=== PATIENT | male | born 1940 | race Caucasian/White ===

== ENCOUNTER → 2017-12-07 | Outpatient (CLI) | payer OTHER, MEDICARE ==
[2017-12-07 17:55] LABS: BASO % 0.2 %; BASO ABS # 0.01 K/uL (0-0.2); EOS % 4.6 %; EOS ABS # 0.27 K/uL (0-0.5); HEMATOCRIT 41.2 % (42-52); IG# 0.05 K/uL (0.00-0.02); LYMPH % 21.6 %; LYMPH ABS # 1.27 K/uL (1.2-3.4); MEAN CELL VOLUME 92.2 fL (80-100); MEAN CORPUSCULAR HEMOGLOBIN 31.3 pg (25-34); MEAN PLATELET VOLUME 10.1 fL (7.4-10.4); MONO % 11.9 %; NEUT % 60.8 %; NEUT ABS # 3.57 K/uL (1.4-6.5); PLATELET COUNT 243 K/uL (130-400); RED CELL DISTRIBUTION WIDTH CV 13.3 % (11.5-14.5); RED CELL DISTRIBUTION WIDTH SD 44.6 fL (36.4-46.3); WHITE BLOOD COUNT 5.87 K/uL (4.8-10.8)
[2017-12-07 18:57] LABS: ALBUMIN 3.7 gm/dl (3.4-5.0); ALT/SGPT 31 U/L (12-78); BLOOD UREA NITROGEN 15 mg/dl (7-18); CALCIUM 8.3 mg/dl (8.5-10.1); CARBON DIOXIDE 29 mmol/L (21-32); CHOLESTEROL 130 mg/dl (0-200); CREATININE 0.94 mg/dl (0.60-1.40); GLUCOSE 90 mg/dl (70-99); SODIUM 138 mmol/L (136-145)
[2017-12-07 19:08] LABS: ALKALINE PHOSPHATASE 47 U/L (45-117); AST/SGOT 20 U/L (15-37); LDL CHOLESTEROL CALCULATED 82 mg/dl; TOTAL PROTEIN 7.3 gm/dl (6.4-8.2)
== END | disposition home or self-care (01) ==
LOC: C.LABMFLN 14:58
PROVIDERS: ATTEND Physician Assistant
DX: Z00.00 Encounter for general adult medical examination without abnormal findings (principal); Z13.220 Encounter for screening for lipoid disorders; Z13.1 Encounter for screening for diabetes mellitus; Z86.73 Personal history of transient ischemic attack (TIA), and cerebral infarction without residual deficits; Z13.29 Encounter for screening for other suspected endocrine disorder

== ENCOUNTER 2021-11-05 20:01 | Inpatient (IN) ==
[2021-11-05] MEDS ORDERED: ONDANSETRON INJ 2 MG/ML 2 ML VIAL IV STA (20:15)
[2021-11-05] MEDS ORDERED: LABETALOL HCL IV 5 MG/ML 20ML IV STA (20:15)
[2021-11-05] MEDS ORDERED: OPTIRAY 320 125ml IV ONE (20:28)
[2021-11-05] MEDS: SODIUM CHLORIDE 0.9% 1000ML 1,000 ML IV SCH (20:32)
--- NOTE | 2021-11-05 20:35 | Emergency Department Note ---
History of Present Illness General Chief complaint: Neuro Symptoms/Deficit Stated complaint: POSSIBLE STROKE Time Seen by Provider: 11/05/21 20:09 Source: patient and family Mode of arrival: ambulatory Limitations: no limitations History of Present Illness Provider complaint: Possible stroke Maximum Pain Intensity: 7 Treatments prior to arrival: none This is a 81-year-old male presents with at bedside due to concern for possible stroke. Patient states he was driving at 3:30 PM when he suddenly developed headache, left-sided facial numbness, left arm and left leg numbness. Patient denies overt weakness. States upon attempts at standing then he became dizzy, nauseated, began to vomit. Patient states he called his who had to come get him and then brought him to the emergency room. She states that every time he stands up he feels more nauseated and dizzy and vomits. No prior history of stroke. Patient states he does not routinely go to the doctor. He does not routinely use any antiplatelet or anticoagulation therapy. No known history of hypertension, hyperlipidemia, or diabetes. states every once in a while he will take a low-dose aspirin, she does not know when he last took 1. Patient denies any accompanying chest pain, trouble breathing, or abdominal pain. He states he did notice blurry vision when this all began at 330. Stroke alert activated while I was evaluating the patient in room B1. Pt seen during a time of high acuity and national emergency pandemic while wearing PPE. Home Medications Medication Instructions Recorded Confirmed Type aspirin 81 mg tablet,delayed 81 mg PO [id number] 11/05/21 11/05/21 History release Allergies Allergy/AdvReac Type Severity Reaction Status Date / Time No Known Allergies Allergy Unverified 11/05/21 22:04 Past Med/Surg History Medical History (Updated 11/06/21 @ 01:55 by Lizett Horton DO) Blood pressure elevated without history of HTN History of TIA (transient ischemic attack) No significant past medical history Surgical History History of tonsillectomy Hx of appendectomy Family History Unknown Adopted Social History Smoking Status: Former smoker Preferred Language: Palestinian marital status: Current Living Situation: Spouse current occupational status: retired Feels Safe at Home: Yes Review of Systems A total of 10 systems reviewed and were otherwise negative All systems reviewed & are unremarkable except as noted in HPI & below Physical Exam Vital Signs Vital Signs - 24 hr 11/05/21 20:02 11/05/21 20:55 11/05/21 20:58 Temperature 36.3 C L Temperature Source Oral Pulse Rate 68 Pulse Rate [Apical] 74 Pulse Rhythm [Apical] Regular Pulse Strength [Apical] Normal Respiratory Rate 20 16 Respiratory Effort / Characteristics Non-Labored Spontaneous Respiratory Depth Normal Respiratory Pattern Regular Blood Pressure 193/114 H Blood Pressure [Left Arm] 174/91 H Blood Pressure Mean 140 Blood Pressure Mean [Left Arm] 118 Blood Pressure Position [Left Arm] Sitting Pulse Oximetry 98 94 95 Oxygen Delivery Method Room Air Room Air Room Air Sepsis New/Unexplained Change in Mental Status N/A Sepsis Action Taken by Nursing No Action Required Pulse Oximetry Post Tiitration 94 11/05/21 22:08 Temperature Temperature Source Pulse Rate Pulse Rate [Apical] 69 Pulse Rhythm [Apical] Regular Pulse Strength [Apical] Respiratory Rate 19 Respiratory Effort / Characteristics Non-Labored Respiratory Depth Normal Respiratory Pattern Regular Blood Pressure Blood Pressure [Left Arm] 173/104 H Blood Pressure Mean Blood Pressure Mean [Left Arm] 127 Blood Pressure Position [Left Arm] Pulse Oximetry 97 Oxygen Delivery Method Room Air Sepsis New/Unexplained Change in Mental Status Sepsis Action Taken by Nursing Pulse Oximetry Post Tiitration GENERAL: alert, ill appearing, well nourished, mild distress, non-toxic, holding emesis bag, vomited twice in room B1 EYE EXAM: normal conjunctiva, PERRL and EOM's grossly intact OROPHARYNX: no exudate, no erythema, lips, buccal mucosa, and tongue normal and mucous membranes are moist NECK: supple, no nuchal rigidity, no adenopathy, non-tender LUNGS: Clear to auscultation. Normal chest wall mechanics, no w/r/r HEART: no murmurs, S1 normal and S2 normal ABDOMEN: abdomen soft, non-tender, normo-active bowel sounds, no masses, no rebound or guarding. BACK: Back is symmetrical on inspection and there is no deformity, no midline tenderness, no CVA tenderness. SKIN: no rashes and no bruising UPPER EXTREMITIES: upper extremities are grossly normal. FROM, nml pulses b/l. Patient describes subjective sensory difference to the left upper extremity compared to the right. LOWER EXTREMITIES: No pitting edema. FROM, nml pulses b/l. Left lower extremity weakness. Patient's describes subjective sensory difference to left lower extremity compared to the right. NEURO EXAM: Normal sensorium, cranial nerves II-XII grossly intact, normal speech, no obvious facial droop however slight flattening of the right nasolabial fold - at bedside feels his face looks symmetric and normal to her, patient states left side of face has subjective altered sensation compared to right, no gross weakness of arms, no limb ataxia, left lower extremity with appreciable weakness as it slowly drops to the bed. Gross sensation intact. NIHSS 4 Course Course 2041: No change in symptoms. Blood pressure is slightly improved. 2051: Discussed with Dr. Jaime, [place] [facility]. She will evaluate. 2124: [place] [facility] requested my presence at bedside. They discussed they do agree patient is having a stroke although he at this time he is outside the window for TPA, and there is no obvious occlusion on CT/CTA to warrant other procedural intervention at this time. They do recommend additional inpatient evaluation with MRI, echo, initiation of aspirin and Plavix therapy, hemoglobin A1c, lipid panel, and initiation of a statin. Administered Medications Sodium Chloride (Nss 1000ml) 1,000 mls @ 125 mls/hr IV .Q8H CLAY Stop: 12/05/21 20:14 Last Admin: 11/05/21 20:32 Dose: 125 mls/hr Documented by: [id number] Discontinued Medications Aspirin (Aspirin Chew 324 Mg) 324 mg PO NOW STA Stop: 11/05/21 21:34 Last Admin: 11/05/21 21:53 Dose: 324 mg Documented by: [id number] Clopidogrel Bisulfate (Clopidogrel Bisulfate 300 Mg Tab) 300 mg PO NOW STA Stop: 11/05/21 21:34 Last Admin: 11/05/21 21:53 Dose: 300 mg Documented by: [id number] Ioversol (Optiray 320 125ml) 125 ml IV ONCE ONE Stop: 11/05/21 20:29 Last Admin: 11/05/21 20:28 Dose: 125 ml Documented by: [id number] Labetalol HCl (Labetalol Hcl Iv 5 Mg/Ml 20ml) 5 mg IV NOW STA Stop: 11/05/21 20:16 Last Admin: 11/05/21 20:32 Dose: 5 mg Documented by: [id number] Cosigned by: [id number] Ondansetron HCl (Ondansetron Inj 2 Mg/Ml 2 Ml Vial) 4 mg IV NOW STA Stop: 11/05/21 20:16 Last Admin: 11/05/21 20:31 Dose: 4 mg Documented by: [id number] Rosuvastatin Calcium (Rosuvastatin Calcium 20 Mg Tab) 20 mg PO NOW STA Stop: 11/05/21 21:35 Last Admin: 11/05/21 21:53 Dose: 20 mg Documented by: [id number] Critical Care Time Critical Care Time: Yes Total Critical Care Time: 39 Critical care of 39 min performed to assess and manage high likelihood of life- threatening CVA and hypertension, involving labs and imaging performed with assessment to evaluate CVA diagnosis with frequent reassessment. This time includes bedside time, treatment discussions with patient/family/consultants, documentation time and excludes procedure time. Medical Decision Making Differential Diagnosis Differential Diagnosis includes but is not limited to ischemic Stroke, hemorrhagic stroke, bells palsy, mass, neoplasm, migraine headache, seizure, subarachnoid hemorrhage, TIA, and transient global amnesia. Medical Records Attestation: I reviewed the patient's medical records. Home Medications Current Medication List: was personally reviewed by me Laboratory Data Attestation: I reviewed the patient's lab results. Result diagrams: 11/05/21 20:31 11/05/21 20:31 Lab Results 11/05/21 11/05/21 11/05/21 Range/Units 20:15 20:31 20:31 WBC 11.67 H (4.8-10.8) K/uL RBC 4.04 L (4.7-6.1) M/uL Hgb 12.5 L (14.0-18.0) g/dL POC Hgb (14.0-18.0) g/dl Hct 37.6 L (42-52) % POC Hct (42-52) % MCV 93.1 (80-100) fL MCH 30.9 (25-34) pg MCHC 33.2 (32-36) g/dL RDW Std Deviation 44.9 (36.4-46.3) fL RDW Coeff of Maritza 13.1 (11.5-14.5) % Plt Count 276 (130-400) K/uL MPV 10.0 (7.4-10.4) fL Immature Gran % (Auto) 0.3 % Neut % (Auto) 88.6 % Lymph % (Auto) 7.5 % [place] % (Auto) 2.9 % Eos % (Auto) 0.5 % Baso % (Auto) 0.2 % Neut # (Auto) 10.34 H (1.4-6.5) K/uL Lymph # (Auto) 0.88 L (1.2-3.4) K/uL [place] # (Auto) 0.34 (0.11-0.59) K/uL Eos # (Auto) 0.06 (0-0.5) K/uL Baso # (Auto) 0.02 (0-0.2) K/uL Immature Gran # (Auto) 0.03 H (0.00-0.02) K/uL PT 11.4 (9.0-12.0) Seconds INR 1.1 (0.9-1.1) APTT 25.4 (21.0-31.0) Seconds PTT Ratio 1.0 POC Sodium (135-144) mmol/L Sodium (136-145) mmol/L POC Potassium (3.3-5.0) mmol/L Potassium (3.5-5.1) mmol/L POC Chloride (101-112) mmol/L Chloride (98-107) mmol/L Carbon Dioxide (21-32) mmol/L POC Total CO2 (24-31) mmol/L Anion Gap (3-11) POC Anion Gap (16-25) mmol/L POC BUN (7-18) mg/dl BUN (6-23) mg/dl Creatinine (0.6-1.4) mg/dl POC Creatinine (0.6-1.3) mg/dl Est Cr Clr Drug Dosing ml/min Est GFR ( Amer) ml/min Est GFR (Non-Af Amer) ml/min BUN/Creatinine Ratio (10-20) Glucose (70-99(Fasting)) mg/dl POC Glucose 113 H (70-99) mg/dl POC Glucose (other) (70-99) mg/dl Calcium (8.5-10.1) mg/dl POC Ioniz Calcium Marcelino (1.12-1.32) mmol/l Magnesium (1.7-2.4) mg/dl Total Bilirubin (0.2-1.0) mg/dl AST (13-39) U/L ALT (7-52) U/L Alkaline Phosphatase (34-104) U/L Troponin I (0-0.04) ng/ml Total Protein (6.0-8.3) gm/dl Albumin (3.4-5.0) gm/dl Globulin (2.5-4.0) gm/dl Albumin/Globulin Ratio (0.9-2) Triglycerides (0-150) mg/dl Cholesterol (0-200) mg/dl LDL Cholesterol, Calc mg/dl VLDL Cholesterol, Calc (0-30) mg/dl HDL Cholesterol mg/dl Cholesterol/HDL Ratio (0-5) SARS-CoV-2, RNA, NAAT (NEGATIVE) 11/05/21 11/05/21 11/05/21 Range/Units 20:31 20:31 20:37 WBC (4.8-10.8) K/uL RBC (4.7-6.1) M/uL Hgb (14.0-18.0) g/dL POC Hgb 12.2 L (14.0-18.0) g/dl Hct (42-52) % POC Hct 36 L (42-52) % MCV (80-100) fL MCH (25-34) pg MCHC (32-36) g/dL RDW Std Deviation (36.4-46.3) fL RDW Coeff of Maritza (11.5-14.5) % Plt Count (130-400) K/uL MPV (7.4-10.4) fL Immature Gran % (Auto) % Neut % (Auto) % Lymph % (Auto) % [place] % (Auto) % Eos % (Auto) % Baso % (Auto) % Neut # (Auto) (1.4-6.5) K/uL Lymph # (Auto) (1.2-3.4) K/uL [place] # (Auto) (0.11-0.59) K/uL Eos # (Auto) (0-0.5) K/uL Baso # (Auto) (0-0.2) K/uL Immature Gran # (Auto) (0.00-0.02) K/uL PT (9.0-12.0) Seconds INR (0.9-1.1) APTT (21.0-31.0) Seconds PTT Ratio POC Sodium 135 (135-144) mmol/L Sodium 131 L (136-145) mmol/L POC Potassium 4.1 (3.3-5.0) mmol/L Potassium 4.0 (3.5-5.1) mmol/L POC Chloride 100 L (101-112) mmol/L Chloride 101 (98-107) mmol/L Carbon Dioxide 25 (21-32) mmol/L POC Total CO2 23 L (24-31) mmol/L Anion Gap 5 (3-11) POC Anion Gap 17.0 (16-25) mmol/L POC BUN 22 H (7-18) mg/dl BUN 22 (6-23) mg/dl Creatinine 0.78 (0.6-1.4) mg/dl POC Creatinine 0.8 (0.6-1.3) mg/dl Est Cr Clr Drug Dosing 94.4 ml/min Est GFR ( Amer) 99.5 ml/min Est GFR (Non-Af Amer) 85.9 ml/min BUN/Creatinine Ratio 28.2 H (10-20) Glucose 128 H (70-99(Fasting)) mg/dl POC Glucose (70-99) mg/dl POC Glucose (other) 130 H (70-99) mg/dl Calcium 8.1 L (8.5-10.1) mg/dl POC Ioniz Calcium Marcelino 1.13 (1.12-1.32) mmol/l Magnesium 2.1 (1.7-2.4) mg/dl Total Bilirubin 1.0 (0.2-1.0) mg/dl AST 13 (13-39) U/L ALT 11 (7-52) U/L Alkaline Phosphatase 42 (34-104) U/L Troponin I < 0.03 (0-0.04) ng/ml Total Protein 6.1 (6.0-8.3) gm/dl Albumin 3.7 (3.4-5.0) gm/dl Globulin 2.4 L (2.5-4.0) gm/dl Albumin/Globulin Ratio 1.5 (0.9-2) Triglycerides 152 H (0-150) mg/dl Cholesterol 114 (0-200) mg/dl LDL Cholesterol, Calc 45 mg/dl VLDL Cholesterol, Calc 30 (0-30) mg/dl HDL Cholesterol 39 mg/dl Cholesterol/HDL Ratio 2.9 (0-5) SARS-CoV-2, RNA, NAAT (NEGATIVE) 11/05/21 Range/Units 22:05 WBC (4.8-10.8) K/uL RBC (4.7-6.1) M/uL Hgb (14.0-18.0) g/dL POC Hgb (14.0-18.0) g/dl Hct (42-52) % POC Hct (42-52) % MCV (80-100) fL MCH (25-34) pg MCHC (32-36) g/dL RDW Std Deviation (36.4-46.3) fL RDW Coeff of Maritza (11.5-14.5) % Plt Count (130-400) K/uL MPV (7.4-10.4) fL Immature Gran % (Auto) % Neut % (Auto) % Lymph % (Auto) % [place] % (Auto) % Eos % (Auto) % Baso % (Auto) % Neut # (Auto) (1.4-6.5) K/uL Lymph # (Auto) (1.2-3.4) K/uL [place] # (Auto) (0.11-0.59) K/uL Eos # (Auto) (0-0.5) K/uL Baso # (Auto) (0-0.2) K/uL Immature Gran # (Auto) (0.00-0.02) K/uL PT (9.0-12.0) Seconds INR (0.9-1.1) APTT (21.0-31.0) Seconds PTT Ratio POC Sodium (135-144) mmol/L Sodium (136-145) mmol/L POC Potassium (3.3-5.0) mmol/L Potassium (3.5-5.1) mmol/L POC Chloride (101-112) mmol/L Chloride (98-107) mmol/L Carbon Dioxide (21-32) mmol/L POC Total CO2 (24-31) mmol/L Anion Gap (3-11) POC Anion Gap (16-25) mmol/L POC BUN (7-18) mg/dl BUN (6-23) mg/dl Creatinine (0.6-1.4) mg/dl POC Creatinine (0.6-1.3) mg/dl Est Cr Clr Drug Dosing ml/min Est GFR ( Amer) ml/min Est GFR (Non-Af Amer) ml/min BUN/Creatinine Ratio (10-20) Glucose (70-99(Fasting)) mg/dl POC Glucose (70-99) mg/dl POC Glucose (other) (70-99) mg/dl Calcium (8.5-10.1) mg/dl POC Ioniz Calcium Marcelino (1.12-1.32) mmol/l Magnesium (1.7-2.4) mg/dl Total Bilirubin (0.2-1.0) mg/dl AST (13-39) U/L ALT (7-52) U/L Alkaline Phosphatase (34-104) U/L Troponin I (0-0.04) ng/ml Total Protein (6.0-8.3) gm/dl Albumin (3.4-5.0) gm/dl Globulin (2.5-4.0) gm/dl Albumin/Globulin Ratio (0.9-2) Triglycerides (0-150) mg/dl Cholesterol (0-200) mg/dl LDL Cholesterol, Calc mg/dl VLDL Cholesterol, Calc (0-30) mg/dl HDL Cholesterol mg/dl Cholesterol/HDL Ratio (0-5) SARS-CoV-2, RNA, NAAT NEGATIVE (NEGATIVE) Imaging Data Radiologist's Impression: Head CT 11/05/21 20:[address] OF THE BRAIN; CT ANGIOGRAM OF THE BRAIN; CT ANGIOGRAM OF THE NECK CLINICAL HISTORY: Strokelike symptoms. COMPARISON STUDY: No priors. TECHNIQUE: Unenhanced axial CT scan of the brain is performed. Subsequently, following the IV administration of 125 of Optiray 320, CT angiogram of the head and neck was performed from the aortic arch to the vertex. Images are reviewed in the axial, sagittal, and coronal planes. 3-D MIPS images are created and assessed. IV contrast was administered without complication. All measurements were calculated based on NASCET criteria. A dose lowering technique was utilized adhering to the principles of ALARA. CT DOSE: 1175.65 mGy.cm FINDINGS: Brain parenchyma: There is age-related involutional change noting mild subcortical and periventricular microangiopathic disease. There is no hemorrhage, mass effect, or evidence of acute territorial ischemia by CT criteria. There is no evidence of enhancing mass lesion on the angiogram phase images. The ventricles, sulci, and cisterns are prominent secondary to involutional change. 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 Ness-white matter differentiation is preserved. No extra-axial fluid collection is seen. Thoracic aorta: There is atherosclerotic calcification of the thoracic aorta. Visualized portions of the thoracic aorta are normal in caliber. The aortic arch demonstrates standard 3-vessel anatomy. Right carotid arterial system: The right common carotid artery is widely patent, as are the right internal and external carotid arteries. Calcified plaque is noted in the carotid bulb. Left carotid arterial system: The left common carotid artery is widely patent, as are the left internal and external carotid arteries. Calcified plaque is noted in the carotid bulb. 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 The vertebral arteries are otherwise widely patent bilaterally and codominant. Subclavian arteries: Widely patent bilaterally. Intracranial vasculature: There is atherosclerotic calcification of the cavernous carotid and vertebral arteries. Atherosclerotic irregularity is seen throughout the cavernous carotid arteries. The internal carotid arteries are patent at the skull base, as are the anterior and middle cerebral arteries bilaterally. The vertebrobasilar system and posterior cerebral arteries are widely patent. The vertebral arteries are codominant. There is no aneurysm, high-grade stenosis, or focal vessel cut off seen throughout the intracranial circulation. Jugular veins: Patent bilaterally. Dural sinuses: Patent. Lung apices: Emphysematous change is noted in the upper lobes. Partially visualized upper lobe lung parenchyma is otherwise clear. Soft tissues: The visualized pharyngeal soft tissues are normal in appearance noting angiographic phase technique. The oropharyngeal airway appears widely patent. The salivary and thyroid glands are normal in appearance. No cervical lymphadenopathy is seen. Skeletal structures: The skeletal structures are osteopenic. The calvarium appears intact. The cervical spine is maintained noting multilevel spondylosis. No lytic or blastic lesion is seen. Orbits: The bony orbits are intact. Orbital contents are normal as visualized. Sinuses and mastoids: The paranasal sinuses are clear. The mastoid air cells are well pneumatized. IMPRESSION: 1. There is no hemorrhage, mass effect, or evidence of acute territorial ischemia by CT criteria. 2. Unremarkable CT angiogram of the brain. 3. 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 4. Otherwise unremarkable CT angiogram of the neck. 5. Emphysema. ACT 112: Negative or not required by law. Electronically signed by: Madhu Wright M.D. 11/05/2021 8:41 PM Head CTA 11/05/21 20:[address] OF THE BRAIN; CT ANGIOGRAM OF THE BRAIN; CT ANGIOGRAM OF THE NECK CLINICAL HISTORY: Strokelike symptoms. COMPARISON STUDY: No priors. TECHNIQUE: Unenhanced axial CT scan of the brain is performed. Subsequently, following the IV administration of 125 of Optiray 320, CT angiogram of the head and neck was performed from the aortic arch to the vertex. Images are reviewed in the axial, sagittal, and coronal planes. 3-D MIPS images are created and assessed. IV contrast was administered without complication. All measurements were calculated based on NASCET criteria. A dose lowering technique was utilized adhering to the principles of ALARA. CT DOSE: 1175.65 mGy.cm FINDINGS: Brain parenchyma: There is age-related involutional change noting mild subcortical and periventricular microangiopathic disease. There is no hemorrhage, mass effect, or evidence of acute territorial ischemia by CT criteria. There is no evidence of enhancing mass lesion on the angiogram phase images. The ventricles, sulci, and cisterns are prominent secondary to involutional change. 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 Ness-white matter differentiation is preserved. No extra-axial fluid collection is seen. Thoracic aorta: There is atherosclerotic calcification of the thoracic aorta. Visualized portions of the thoracic aorta are normal in caliber. The aortic arch demonstrates standard 3-vessel anatomy. Right carotid arterial system: The right common carotid artery is widely patent, as are the right internal and external carotid arteries. Calcified plaque is noted in the carotid bulb. Left carotid arterial system: The left common carotid artery is widely patent, as are the left internal and external carotid arteries. Calcified plaque is noted in the carotid bulb. 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 The vertebral arteries are otherwise widely patent bilaterally and codominant. Subclavian arteries: Widely patent bilaterally. Intracranial vasculature: There is atherosclerotic calcification of the [place] carotid and vertebral arteries. Atherosclerotic irregularity is seen throughout the cavernous carotid arteries. The internal carotid arteries are patent at the skull base, as are the anterior and middle cerebral arteries bilaterally. The vertebrobasilar system and posterior cerebral arteries are widely patent. The vertebral arteries are codominant. There is no aneurysm, high-grade stenosis, or focal vessel cut off seen throughout the intracranial circulation. Jugular veins: Patent bilaterally. Dural sinuses: Patent. Lung apices: Emphysematous change is noted in the upper lobes. Partially visualized upper lobe lung parenchyma is otherwise clear. Soft tissues: The visualized pharyngeal soft tissues are normal in appearance noting angiographic phase technique. The oropharyngeal airway appears widely patent. The salivary and thyroid glands are normal in appearance. No cervical lymphadenopathy is seen. Skeletal structures: The skeletal structures are osteopenic. The calvarium appears intact. The cervical spine is maintained noting multilevel spondylosis. No lytic or blastic lesion is seen. Orbits: The bony orbits are intact. Orbital contents are normal as visualized. Sinuses and mastoids: The paranasal sinuses are clear. The mastoid air cells are well pneumatized. IMPRESSION: 1. There is no hemorrhage, mass effect, or evidence of acute territorial ischemia by CT criteria. 2. Unremarkable CT angiogram of the brain. 3. 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 4. Otherwise unremarkable CT angiogram of the neck. 5. Emphysema. ACT 112: Negative or not required by law. Electronically signed by: Madhu Wright M.D. 11/05/2021 8:41 PM Neck CTA 11/05/21 20:[address] OF THE BRAIN; CT ANGIOGRAM OF THE BRAIN; CT ANGIOGRAM OF THE NECK CLINICAL HISTORY: Strokelike symptoms. COMPARISON STUDY: No priors. TECHNIQUE: Unenhanced axial CT scan of the brain is performed. Subsequently, following the IV administration of 125 of Optiray 320, CT angiogram of the head and neck was performed from the aortic arch to the vertex. Images are reviewed in the axial, sagittal, and coronal planes. 3-D MIPS images are created and assessed. IV contrast was administered without complication. All measurements were calculated based on NASCET criteria. A dose lowering technique was utilized adhering to the principles of ALARA. CT DOSE: 1175.65 mGy.cm FINDINGS: Brain parenchyma: There is age-related involutional change noting mild subcortical and periventricular microangiopathic disease. There is no hemorrhage, mass effect, or evidence of acute territorial ischemia by CT criteria. There is no evidence of enhancing mass lesion on the angiogram phase images. The ventricles, sulci, and cisterns are prominent secondary to involutional change. 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 Ness-white matter differentiation is preserved. No extra-axial fluid collection is seen. Thoracic aorta: There is atherosclerotic calcification of the thoracic aorta. Visualized portions of the thoracic aorta are normal in caliber. The aortic arch demonstrates standard 3-vessel anatomy. Right carotid arterial system: The right common carotid artery is widely patent, as are the right internal and external carotid arteries. Calcified plaque is noted in the carotid bulb. Left carotid arterial system: The left common carotid artery is widely patent, as are the left internal and external carotid arteries. Calcified plaque is noted in the carotid bulb. 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 The vertebral arteries are otherwise widely patent bilaterally and codominant. Subclavian arteries: Widely patent bilaterally. Intracranial vasculature: There is atherosclerotic calcification of the cavernous carotid and vertebral arteries. Atherosclerotic irregularity is seen throughout the cavernous carotid arteries. The internal carotid arteries are pat ent at the skull base, as are the anterior and middle cerebral arteries bilaterally. The vertebrobasilar system and posterior cerebral arteries are widely patent. The vertebral arteries are codominant. There is no aneurysm, high-grade stenosis, or focal vessel cut off seen throughout the intracranial circulation. Jugular veins: Patent bilaterally. Dural sinuses: Patent. Lung apices: Emphysematous change is noted in the upper lobes. Partially visualized upper lobe lung parenchyma is otherwise clear. Soft tissues: The visualized pharyngeal soft tissues are normal in appearance noting angiographic phase technique. The oropharyngeal airway appears widely patent. The salivary and thyroid glands are normal in appearance. No cervical lymphadenopathy is seen. Skeletal structures: The skeletal structures are osteopenic. The calvarium appears intact. The cervical spine is maintained noting multilevel spondylosis. No lytic or blastic lesion is seen. Orbits: The bony orbits are intact. Orbital contents are normal as visualized. Sinuses and mastoids: The paranasal sinuses are clear. The mastoid air cells are well pneumatized. IMPRESSION: 1. There is no hemorrhage, mass effect, or evidence of acute territorial ischemia by CT criteria. 2. Unremarkable CT angiogram of the brain. 3. 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 4. Otherwise unremarkable CT angiogram of the neck. 5. Emphysema. ACT 112: Negative or not required by law. Electronically signed by: Madhu Wright M.D. 11/05/2021 8:41 PM ECG Data Attestation: I personally reviewed and interpreted this ECG as follows: Indication: + vomiting Rate (beats per minute): 75 Rhythm: + normal sinus ECG Intervals/blocks: + Normal QRS and + Normal QT ECG [place]: + Normal ECG ST segments: + Normal ST segments MDM Narrative This is a 81-year-old male who presents due to concern for possible stroke. Upon my evaluation of the patient in B1, stroke alert was activated and labs are drawn and sent, patient taken urgently for CT imaging. Patient found to be significantly hypertensive, he was given 5 mg of labetalol IV. No dysrhythmia noted on telemetry while monitored. Patient's labs reassuring. I did contact the [place] telestroke neurologist for additional evaluation. They did make additional recommendations. Patient is not a candidate for TPA or other intervention/procedure at this time. They recommended additional inpatient management, medications, additional labs and imaging. This was discussed with the hospitalist for additional evaluation and management. An order was placed for continuous cardiac monitoring. The monitor shows a rate of _72_ with _normal sinus_ rhythm. Impression & Plan Acute CVA (cerebrovascular accident), Hypertension, Acute hyperglycemia, Hyponatremia, Paresthesias Discharge Plan Visit Data Chief Complaint: Neuro Symptoms/Deficit Stated Complaint: POSSIBLE STROKE ED Provider: Lizett Horton Discharge Problem: Acute CVA (cerebrovascular accident), Hypertension, Acute hyperglycemia, Hyponatremia, Paresthesias Patient Disposition: Being Evaluated by Hospitalist
--- NOTE | 2021-11-05 20:42 | CT Scan Report ---
UNENHANCED CT OF THE BRAIN; CT ANGIOGRAM OF THE BRAIN; CT ANGIOGRAM OF THE NECK CLINICAL HISTORY: Strokelike symptoms. COMPARISON STUDY: No priors. TECHNIQUE: Unenhanced axial CT scan of the brain is performed. Subsequently, following the IV adminis tration of 125 of [address] 320, CT angiogram of the head and neck was performed from the aortic arch t o the vertex. Images are reviewed in the axial, sagittal, and coronal planes. 3-D MIPS images are cre ated and assessed. IV contrast was administered without complication. All measurements were calculate d based on NASCET criteria. A dose lowering technique was utilized adhering to the principles of ALA RA. CT DOSE: 1175.65 mGy.cm FINDINGS: Brain parenchyma: There is age-related involutional change noting mild subcortical and periventricula r microangiopathic disease. There is no hemorrhage, mass effect, or evidence of acute territorial isc hemia by CT criteria. There is no evidence of enhancing mass lesion on the angiogram phase images. Th e ventricles, sulci, and cisterns are prominent secondary to involutional change. 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 Ness-white matter differentiation is preserved. No extra-axial fluid collection is seen. Thoracic aorta: There is atherosclerotic calcification of the thoracic aorta. Visualized portions of the thoracic aorta are normal in caliber. The aortic arch demonstrates standard 3-vessel anatomy. Right carotid arterial system: The right common carotid artery is widely patent, as are the right int ernal and external carotid arteries. Calcified plaque is noted in the carotid bulb. Left carotid arterial system: The left common carotid artery is widely patent, as are the left healthcare administration intern al and external carotid arteries. Calcified plaque is noted in the carotid bulb. 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 T he vertebral arteries are otherwise widely patent bilaterally and codominant. Subclavian arteries: Widely patent bilaterally. Intracranial vasculature: There is atherosclerotic calcification of the cavernous carotid and vertebr al arteries. Atherosclerotic irregularity is seen throughout the cavernous carotid arteries. The inte rnal carotid arteries are patent at the skull base, as are the anterior and middle cerebral arteries bilaterally. The vertebrobasilar system and posterior cerebral arteries are widely patent. The verteb ral arteries are codominant. There is no aneurysm, high-grade stenosis, or focal vessel cut off seen throughout the intracranial circulation. Jugular veins: Patent bilaterally. Dural sinuses: Patent. Lung apices: Emphysematous change is noted in the upper lobes. Partially visualized upper lobe lung p arenchyma is otherwise clear. Soft tissues: The visualized pharyngeal soft tissues are normal in appearance noting angiographic pha se technique. The oropharyngeal airway appears widely patent. The salivary and thyroid glands are nor mal in appearance. No cervical lymphadenopathy is seen. Skeletal structures: The skeletal structures are osteopenic. The calvarium appears intact. The cervic al spine is maintained noting multilevel spondylosis. No lytic or blastic lesion is seen. Orbits: The bony orbits are intact. Orbital contents are normal as visualized. Sinuses and mastoids: The paranasal sinuses are clear. The mastoid air cells are well pneumatized. IMPRESSION: 1. There is no hemorrhage, mass effect, or evidence of acute territorial ischemia by CT criteria. 2. Unremarkable CT angiogram of the brain. 3. 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 4. Otherwise unremarkable CT angiogram of the neck. 5. Emphysema. ACT 112: Negative or not required by law. Electronically signed by: Madhu Wright M.D. 11/05/2021 8:41 PM
[2021-11-05 20:43] LABS: Basophils # (auto) 0.02 K/uL (0-0.2); Basophils % (auto) 0.2 %; Eosinophils # (auto) 0.06 K/uL (0-0.5); Eosinophils % (auto) 0.5 %; Hematocrit (blood only) 37.6 % (42-52); Hemoglobin 12.5 g/dL (14.0-18.0); Immature Granulocytes # (auto) 0.03 K/uL (0.00-0.02); Immature Granulocytes % (auto) 0.3 %; Lymphocytes # (auto) 0.88 K/uL (1.2-3.4); Lymphocytes % (auto) 7.5 %; Mean Corpuscular Hemoglobin 30.9 pg (25-34); Mean Corpuscular Hgb Conc 33.2 g/dL (32-36); Mean Corpuscular Volume 93.1 fL (80-100); Monocytes # (auto) 0.34 K/uL (0.11-0.59); Monocytes % (auto) 2.9 %; Neutrophils # (auto) 10.34 K/uL (1.4-6.5); Neutrophils % (auto) 88.6 %; Platelet Count 276 K/uL (130-400); RDW Coefficient of Variation 13.1 % (11.5-14.5); RDW Standard Deviation 44.9 fL (36.4-46.3); Red Blood Count 4.04 M/uL (4.7-6.1); White Blood Count 11.67 K/uL (4.8-10.8)
[2021-11-05 20:53] LABS: INR 1.1 (0.9-1.1); Partial Thromboplastin Time 25.4 Seconds (21.0-31.0); Prothrombin Time 11.4 Seconds (9.0-12.0)
[2021-11-05 20:53] LABS: iSTAT Creatinine 0.8 mg/dl (0.6-1.3); iSTAT Hemoglobin 12.2 g/dl (14.0-18.0); iSTAT Ionized Calcium 1.13 mmol/l (1.12-1.32); iSTAT Potassium 4.1 mmol/L (3.3-5.0)
[2021-11-05 21:03] LABS: Alanine Aminotransferase 11 U/L (7-52); Albumin Globulin Ratio 1.5 (0.9-2); Albumin Level 3.7 gm/dl (3.4-5.0); Alkaline Phosphatase 42 U/L (34-104); Anion Gap 5 (3-11); Aspartate Aminotransferase 13 U/L (13-39); BUN Creatinine Ratio 28.2 (10-20); Blood Urea Nitrogen 22 mg/dl (6-23); Calcium 8.1 mg/dl (8.5-10.1); Carbon Dioxide 25 mmol/L (21-32); Chloride 101 mmol/L (98-107); Creatinine Clr Calc Pharmacy 94.4 ml/min; Est GFR (African American) 99.5 ml/min; Est GFR (Non-African American) 85.9 ml/min; Globulin 2.4 gm/dl (2.5-4.0); Glucose 128 mg/dl (70-99(Fasting)); Magnesium 2.1 mg/dl (1.7-2.4); Sodium 131 mmol/L (136-145); Total Protein 6.1 gm/dl (6.0-8.3)
[2021-11-05 21:04] LABS: Troponin I < 0.03 ng/ml (0-0.04)
[2021-11-05] MEDS ORDERED: ASPIRIN CHEW 324 MG PO STA (21:33)
[2021-11-05] MEDS ORDERED: CLOPIDOGREL BISULFATE 300 MG TAB PO STA (21:33)
[2021-11-05] MEDS ORDERED: ROSUVASTATIN CALCIUM 20 MG TAB PO STA (21:34)
[2021-11-05 21:57] LABS: Chol HDL Ratio 2.9 (0-5)
--- NOTE | 2021-11-05 21:58 | History & Physical Report ---
Date of Service November 05, 2021 Assessment & Plan (1) Stroke-like symptoms: Plan: 81 y/o M w/ previous hx of TIA and HTN who presents w/ stroke like symptoms this afternoon (L sided weakness and sensory deficit), most consistent w/ R MCA territory. TIA is on differential as TIA symptoms may persist up to 24 hours. Main risk factors are distant heavy tobacco use and prior TIA and likely HLD, noncompliant/never filled statin. Head/neck CTA: No acute hemorrhage, mass, or stroke. At least moderate stenosis at the origin of the left vertebral artery. Emphysema. Stroke w/o TPA orderset: Q4 neurochecks. Nursing orders, dysphagia eval, PT, OT. No carotid US as patient had CTA head/neck Echo with bubble study ordered Neuro consulted MRI brain ordered (2) Hypertension: Plan: Patient is not on antihypertensives at home. Per previous records, had problem list item of elevated BPs. Defer antihypertensives this admission in-line w/ permissive hypertension post stroke-like symptoms. (3) Emphysema, unspecified: Plan: Per CTA head/neck. No reported hx of this though patient is distant heavy smoker. 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 He developed left sided (upper and lower extremity) weakness. Generalized blurry vision. Dull constant frontal headache 7/10, currently milder, 3/10. Nausea, vomiting w/ movement. No room spinning. Mild lightheadedness. No chest pain sob diaphoresis + L sided constant paresthesia. Denies any mental status changes. Mild expressive aphasia getting words out, seems better since 9PM. Family did not notice and speech deficits other than slight pausing before speaking. Family drove him to ED. Not covid immunized. Lived w/ biological mom. Denies RI or stroke hx on mother's side. Former smoker, quit 40 years ago, smoked 30 years x 1.5ppd. No illicit substances. No EtOH. Most recent NIH stroke scale at 2034, 8 points; partial hemianopia, L leg weakness. + limb ataxia and loss of sensation. Denies prior PMHx of DM. ED course: Stroke alert called. TPA not indicated. Aspirin 324, crestor 20, plavix 300 advised. MRI to be ordered during daytime. Allergies Allergy/AdvReac Type Severity Reaction Status Date / Time No Known Allergies Allergy Unverified 11/05/21 22:04 Home Medications Medication Instructions Recorded Confirmed Type aspirin 81 mg tablet,delayed 81 mg PO 3XWK 11/05/21 11/05/21 History release Past Med/Surg History Medical History (Updated 11/06/21 @ 07:49 by Tang Lund MD) Blood pressure elevated without history of HTN History of TIA (transient ischemic attack) Surgical History History of tonsillectomy Hx of appendectomy Family History Unknown Adopted Social History Smoking Status: Former smoker Hx Alcohol Use: No Hx Substance Use: No Preferred Language: Nam[place]ian Communication Ability: Effective Assessment Technician Required: No Beliefs That Will Affect Care: None marital status: Current Living Situation: Spouse current occupational status: retired Other Information That Helps Us Care for You: No Feels Safe at Home: Yes Safety Concerns: Feels Safe At This Time Assistive Devices: Denture - Upper and Glasses Review of Systems Review of Systems: All systems reviewed & are unremarkable except as noted in HPI & below Physical Exam Physical Exam: General: A&Ox4. NAD. Cooperative. HEENT: Atraumatic, normocephalic. EOMI. PERRL. Slight horizontal nystagmus (does not cross midline) when looking to right Pulm: CTAB. -wheezes, -rales, -rhonchi. No respiratory distress. Cardiac: RRR, -mrg. Radial pulses intact and symmetrical. Abdominal: Nontender, nondistended, soft. Integ: Warm, dry, intact Neuro: Near-normal strength of bilateral extremities when testing against resistance. L arm is 4/5 strength. Good broom bundler strength. Motor functions of cranial nerves intact. Decreased sensation from left face down to left foot. When arms held out and legs lifted, there is some drifting. No aphasia. Babinski downgoing on R, no response on L. Results & Data Results & Data ([facility]) Vital Signs (Past 12 Hours) Vital Signs bp up to 193/114. Most recent BP is 150/88. 94+ saturation on room air. Temp Pulse Pulse Resp BP BP Pulse Ox 11/05/21 20:58 74 16 174/91 H 95 11/05/21 20:55 94 11/05/21 20:02 36.3 C L 68 20 193/114 H 98 Laboratory Results wbc 11.67H. Hb 12.5. coags wnl. Na 131. A1c pending. Lipid profile pending. 11/05/21 20:31 11/05/21 20:31 Cardiac Enzymes 11/05/21 Range/Units 20: AST 13 (13-39) U/L Troponin I < 0.03 (0-0.04) ng/ml Coagulation 11/05/21 Range/Units 20:31 PT 11.4 (9.0-12.0) Seconds APTT 25.4 (21.0-31.0) Seconds CBC 11/05/21 Range/Units 20:31 WBC 11.67 H (4.8-10.8) K/uL RBC 4.04 L (4.7-6.1) M/uL Hgb 12.5 L (14.0-18.0) g/dL Hct 37.6 L (42-52) % Plt Count 276 (130-400) K/uL Neut # (Auto) 10.34 H (1.4-6.5) K/uL Lymph # (Auto) 0.88 L (1.2-3.4) K/uL [place] # (Auto) 0.34 (0.11-0.59) K/uL Eos # (Auto) 0.06 (0-0.5) K/uL Baso # (Auto) 0.02 (0-0.2) K/uL Comprehensive Metabolic Panel 11/05/21 Range/Units 20:31 Sodium 131 L (136-145) mmol/L Potassium 4.0 (3.5-5.1) mmol/L Chloride 101 (98-107) mmol/L Carbon Dioxide 25 (21-32) mmol/L BUN 22 (6-23) mg/dl Creatinine 0.78 (0.6-1.4) mg/dl Glucose 128 H (70-99(Fasting)) mg/dl Calcium 8.1 L (8.5-10.1) mg/dl AST 13 (13-39) U/L ALT 11 (7-52) U/L Alkaline Phosphatase 42 (34-104) U/L Total Protein 6.1 (6.0-8.3) gm/dl Albumin 3.7 (3.4-5.0) gm/dl Intake and Output 11/05/21 11/05/21 11/05/21 06:59 14:59 22:59 Other: Weight 104.326 kg Patient Weight 11/06/21 06:59 Weight 104.326 kg Diagnostic Findings Head CT 11/05/21 20:[address] OF THE BRAIN; CT ANGIOGRAM OF THE BRAIN; CT ANGIOGRAM OF THE NECK CLINICAL HISTORY: Strokelike symptoms. COMPARISON STUDY: No priors. TECHNIQUE: Unenhanced axial CT scan of the brain is performed. Subsequently, following the IV administration of 125 of Optiray 320, CT angiogram of the head and neck was performed from the aortic arch to the vertex. Images are reviewed in the axial, sagittal, and coronal planes. 3-D MIPS images are created and assessed. IV contrast was administered without complication. All measurements were calculated based on NASCET criteria. A dose lowering technique was utilized adhering to the principles of ALARA. CT DOSE: 1175.65 mGy.cm FINDINGS: Brain parenchyma: There is age-related involutional change noting mild subcortical and periventricular microangiopathic disease. There is no hemorrhage, mass effect, or evidence of acute territorial ischemia by CT criteria. There is no evidence of enhancing mass lesion on the angiogram phase images. The ventricles, sulci, and cisterns are prominent secondary to involutional change. 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 Ness-white matter differentiation is preserved. No extra-axial fluid collection is seen. Thoracic aorta: There is atherosclerotic calcification of the thoracic aorta. Visualized portions of the thoracic aorta are normal in caliber. The aortic arch demonstrates standard 3-vessel anatomy. Right carotid arterial system: The right common carotid artery is widely patent, as are the right internal and external carotid arteries. Calcified plaque is noted in the carotid bulb. Left carotid arterial system: The left common carotid artery is widely patent, as are the left internal and external carotid arteries. Calcified plaque is noted in the carotid bulb. 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 The vertebral arteries are otherwise widely patent bilaterally and codominant. Subclavian arteries: Widely patent bilaterally. Intracranial vasculature: There is atherosclerotic calcification of the cavernous carotid and vertebral arteries. Atherosclerotic irregularity is seen throughout the cavernous carotid arteries. The internal carotid arteries are patent at the skull base, as are the anterior and middle cerebral arteries bilaterally. The vertebrobasilar system and posterior cerebral arteries are widely patent. The vertebral arteries are codominant. There is no aneurysm, high-grade stenosis, or focal vessel cut off seen throughout the intracranial circulation. Jugular veins: Patent bilaterally. Dural sinuses: Patent. Lung apices: Emphysematous change is noted in the upper lobes. Partially visualized upper lobe lung parenchyma is otherwise clear. Soft tissues: The visualized pharyngeal soft tissues are normal in appearance noting angiographic phase technique. The oropharyngeal airway appears widely pat ent. The salivary and thyroid glands are normal in appearance. No cervical lymphadenopathy is seen. Skeletal structures: The skeletal structures are osteopenic. The calvarium appears intact. The cervical spine is maintained noting multilevel spondylosis. No lytic or blastic lesion is seen. Orbits: The bony orbits are intact. Orbital contents are normal as visualized. Sinuses and mastoids: The paranasal sinuses are clear. The mastoid air cells are well pneumatized. IMPRESSION: 1. There is no hemorrhage, mass effect, or evidence of acute territorial ischemia by CT criteria. 2. Unremarkable CT angiogram of the brain. 3. 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 4. Otherwise unremarkable CT angiogram of the neck. 5. Emphysema. ACT 112: Negative or not required by law. Electronically signed by: Madhu Wright M.D. 11/05/2021 8:41 PM Head CTA 11/05/21 20:[address] OF THE BRAIN; CT ANGIOGRAM OF THE BRAIN; CT ANGIOGRAM OF THE NECK CLINICAL HISTORY: Strokelike symptoms. COMPARISON STUDY: No priors. TECHNIQUE: Unenhanced axial CT scan of the brain is performed. Subsequently, following the IV administration of 125 of Optiray 320, CT angiogram of the head and neck was performed from the aortic arch to the vertex. Images are reviewed in the axial, sagittal, and coronal planes. 3-D MIPS images are created and assessed. IV contrast was administered without complication. All measurements were calculated based on NASCET criteria. A dose lowering technique was utilized adhering to the principles of ALARA. CT DOSE: 1175.65 mGy.cm FINDINGS: Brain parenchyma: There is age-related involutional change noting mild subcortical and periventricular microangiopathic disease. There is no hemorrhage, mass effect, or evidence of acute territorial ischemia by CT criteria. There is no evidence of enhancing mass lesion on the angiogram phase images. The ventricles, sulci, and cisterns are prominent secondary to involutional change. 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 Ness-white matter differentiation is preserved. No extra-axial fluid collection is seen. Thoracic aorta: There is atherosclerotic calcification of the thoracic aorta. Visualized portions of the thoracic aorta are normal in caliber. The aortic arch demonstrates standard 3-vessel anatomy. Right carotid arterial system: The right common carotid artery is widely patent, as are the right internal and external carotid arteries. Calcified plaque is noted in the carotid bulb. Left carotid arterial system: The left common carotid artery is widely patent, as are the left internal and external carotid arteries. Calcified plaque is noted in the carotid bulb. 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 The vertebral arteries are otherwise widely patent bilaterally and codominant. Subclavian arteries: Widely patent bilaterally. Intracranial vasculature: There is atherosclerotic calcification of the cavernous carotid and vertebral arteries. Atherosclerotic irregularity is seen throughout the cavernous carotid arteries. The internal carotid arteries are patent at the skull base, as are the anterior and middle cerebral arteries bilaterally. The vertebrobasilar system and posterior cerebral arteries are widely patent. The vertebral arteries are codominant. There is no aneurysm, high-grade stenosis, or focal vessel cut off seen throughout the intracranial circulation. Jugular veins: Patent bilaterally. Dural sinuses: Patent. Lung apices: Emphysematous change is noted in the upper lobes. Partially visualized upper lobe lung parenchyma is otherwise clear. Soft tissues: The visualized pharyngeal soft tissues are normal in appearance noting angiographic phase technique. The oropharyngeal airway appears widely patent. The salivary and thyroid glands are normal in appearance. No cervical lymphadenopathy is seen. Skeletal structures: The skeletal structures are osteopenic. The calvarium appears intact. The cervical spine is maintained noting multilevel spondylosis. No lytic or blastic lesion is seen. Orbits: The bony orbits are intact. Orbital contents are normal as visualized. Sinuses and mastoids: The paranasal sinuses are clear. The mastoid air cells are well pneumatized. IMPRESSION: 1. There is no hemorrhage, mass effect, or evidence of acute territorial ischemia by CT criteria. 2. Unremarkable CT angiogram of the brain. 3. 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 4. Otherwise unremarkable CT angiogram of the neck. 5. Emphysema. ACT 112: Negative or not required by law. Electronically signed by: Madhu Wright M.D. 11/05/2021 8:41 PM Neck CTA 11/05/21 20:[address] OF THE BRAIN; CT ANGIOGRAM OF THE BRAIN; CT ANGIOGRAM OF THE NECK CLINICAL HISTORY: Strokelike symptoms. COMPARISON STUDY: No priors. TECHNIQUE: Unenhanced axial CT scan of the brain is performed. Subsequently, following the IV administration of 125 of Optiray 320, CT angiogram of the head and neck was performed from the aortic arch to the vertex. Images are reviewed in the axial, sagittal, and coronal planes. 3-D MIPS images are created and assessed. IV contrast was administered without complication. All measurements were calculated based on NASCET criteria. A dose lowering technique was utilized adhering to the principles of ALARA. CT DOSE: 1175.65 mGy.cm FINDINGS: Brain parenchyma: There is age-related involutional change noting mild subcortical and periventricular microangiopathic disease. There is no hemorrhage, mass effect, or evidence of acute territorial ischemia by CT criteria. There is no evidence of enhancing mass lesion on the angiogram phase images. The ventricles, sulci, and cisterns are prominent secondary to involutional change. 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 Ness-white matter differentiation is preserved. No extra-axial fluid collection is seen. Thoracic aorta: There is atherosclerotic calcification of the thoracic aorta. Visualized portions of the thoracic aorta are normal in caliber. The aortic arch demonstrates standard 3-vessel anatomy. Right carotid arterial system: The right common carotid artery is widely patent, as are the right internal and external carotid arteries. Calcified plaque is noted in the carotid bulb. Left carotid arterial system: The left common carotid artery is widely patent, as are the left internal and external carotid arteries. Calcified plaque is noted in the carotid bulb. 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 The vertebral arteries are otherwise widely patent bilaterally and codominant. Subclavian arteries: Widely patent bilaterally. Intracranial vasculature: There is atherosclerotic calcification of the cavernous carotid and vertebral arteries. Atherosclerotic irregularity is seen throughout the cavernous carotid arteries. The internal carotid arteries are patent at the skull base, as are the anterior and middle cerebral arteries bilaterally. The vertebrobasilar system and posterior cerebral arteries are widely patent. The vertebral arteries are codominant. There is no aneurysm, high-grade stenosis, or focal vessel cut off seen throughout the intracranial circulation. Jugular veins: Patent bilaterally. Dural sinuses: Patent. Lung apices: Emphysematous change is noted in the upper lobes. Partially visualized upper lobe lung parenchyma is otherwise clear. Soft tissues: The visualized pharyngeal soft tissues are normal in appearance noting angiographic phase technique. The oropharyngeal airway appears widely patent. The salivary and thyroid glands are normal in appearance. No cervical lymphadenopathy is seen. Skeletal structures: The skeletal structures are osteopenic. The calvarium appears intact. The cervical spine is maintained noting multilevel spondylosis. No lytic or blastic lesion is seen. Orbits: The bony orbits are intact. Orbital contents are normal as visualized. Sinuses and mastoids: The paranasal sinuses are clear. The mastoid air cells are well pneumatized. IMPRESSION: 1. There is no hemorrhage, mass effect, or evidence of acute territorial ischemia by CT criteria. 2. Unremarkable CT angiogram of the brain. 3. 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 4. Otherwise unremarkable CT angiogram of the neck. 5. Emphysema. ACT 112: Negative or not required by law. Electronically signed by: Madhu Wright M.D. 11/05/2021 8:41 PM cxr: IMPRESSION: No acute cardiopulmonary findings. Mild cardiomegaly. ECG Additional Comments: Per my interpretation. NSR 75. Normal axis and intervals; QTc slightly prolonged at 480. Nonspecific ST-T changes. Code Status & VTE Plan Code Status full VTE Prophylaxis Plan VTE Prophylaxis will be ordered: Yes Supervising Physician Co-Signing Physician Notes Patient seen and examined, chart reviewed, case discussed with Dr. Lund and I agree with the assessment and plan as discussed. In brief, patient is a 81yo male with history of prior TIA, elevated BP presenting with acute neurological deficit. 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 Presented as Code stroke. CT Head and CTA Head/Neck unremarkable for acute CVA or LVO. Symptoms persistent - patient complaining of LUE/LLE numbness and weakness, mild expressive aphasia, dull MORENO, blurry vision On exam he is afebrile, HD stable. Hypertensive on arrival - administered 5mg Labetalol Skin - intact, no rashes/lesions HEENT - NC/AT, PERRL, EOMI, MMM, Neck supple, cystic appearing lesion on left tongue, nontender Heart - +S1/S2, regular, no m/r/g Lungs - CTA Abd - +BS, soft, NT/ND Ext - warm, well perfused, no clubbing/cyanosis or edema Neuro - Pt AA&O x 4, speech clear and appropriate, no facial droop, CN with reported diplopia/blurry vision in left eye, diminished hearing in left ear, diminished CN XI on left, sensation to light touch diminished left face, arm, leg, +pronator drift RUE, diminished broom bundler strength 4/5, MS in LLE 4/5, RLE 5/5, RUE 5/5, dysmetria left hand with [id number] Labs and images reviewed Assessment/Plan - suspect acute CVA. Patient received Plavix load as well as ASA and Crestor -Check MRI, echo, Lipids and A1C -ASA, Plavix, Statin -Neurology consultation appreciated -Remainder as above Resident Activity Tracking Resident Involvement: Resident Care Provided Care Provided: Adult Hospital Medicine (1) Hypertension Hypertension type: unspecified Qualified Code(s): I10 - Essential (primary) hypertension
--- NOTE | 2021-11-05 22:07 | Billing Data ---
Date of Service November 05, 2021 Coding Level of Care Code 76167 Initial Inpt Care Lvl 2
[2021-11-06] MEDS ORDERED: PHARMACIST DISCHARGE MED REC CONSULT PRN (02:24)
[2021-11-06] MEDS ORDERED: ONDANSETRON INJ 2 MG/ML 2 ML VIAL IV PRN (02:24)
[2021-11-06] MEDS: SODIUM CHLORIDE 0.9% 1000ML 1,000 ML IV SCH (04:15)
[2021-11-06] MEDS ORDERED: GADOBUTROL 65ML VIAL IV ONE (05:42)
--- NOTE | 2021-11-06 06:43 | Magnetic Resonance Report ---
MRI OF THE BRAIN WITHOUT AND WITH IV CONTRAST CLINICAL HISTORY: Stroke-like symptoms. Left-sided numbness. COMPARISON STUDY: Head CT and CTA of the head November 05, 2021. TECHNIQUE: Utilizing a 1.5 Jessica magnet and dedicated coil, multiplanar, multiecho imaging of the br ain was performed pre and postcontrast administration. IV administration of 10 mL of [address] contra st was uneventful. Thin cut to diffusion imaging through the brain stem was performed. FINDINGS: Note is made of a 9 mm focus of restricted diffusion within the right posterior aspect of t he barbie on axial diffusion weighted sequence image 7 of 24. This is hypointense on the ADC map. There is no mass effect. There is no hemorrhage. No additional foci of restricted diffusion are present. M ild ventricular dilatation is due to atrophy. Basal cisterns are patent. There are no extra-axial col lections. No intracranial mass or pathologic enhancement is present. Calvarial signal is unremarkable . Flow-voids for the major intracranial vessels are present. White matter T2 hyperintense foci sugges t small vessel disease. IMPRESSION: 1. 9 mm acute infarct within the right posterior barbie. No mass effect. No hemorrhage. 2. No intracranial mass or pathologic enhancement. 3. Moderate atrophy and small vessel disease. ACT 112: Negative or not required by law. Electronically signed by: Nima Littlejohn M.D. 11/06/2021 6:42 AM
[2021-11-06 07:04] LABS: Basophils # (auto) 0.03 K/uL (0-0.2); Basophils % (auto) 0.3 %; Eosinophils % (auto) 0.9 %; Hematocrit (blood only) 39.8 % (42-52); Hemoglobin 13.3 g/dL (14.0-18.0); Immature Granulocytes # (auto) 0.02 K/uL (0.00-0.02); Immature Granulocytes % (auto) 0.2 %; Lymphocytes # (auto) 1.34 K/uL (1.2-3.4); Lymphocytes % (auto) 12.3 %; Mean Corpuscular Hemoglobin 30.9 pg (25-34); Mean Corpuscular Hgb Conc 33.4 g/dL (32-36); Mean Corpuscular Volume 92.3 fL (80-100); Monocytes # (auto) 1.02 K/uL (0.11-0.59); Monocytes % (auto) 9.3 %; Neutrophils # (auto) 8.42 K/uL (1.4-6.5); Platelet Count 275 K/uL (130-400); RDW Coefficient of Variation 13.2 % (11.5-14.5); RDW Standard Deviation 44.9 fL (36.4-46.3); Red Blood Count 4.31 M/uL (4.7-6.1); White Blood Count 10.93 K/uL (4.8-10.8)
[2021-11-06 07:25] LABS: BUN Creatinine Ratio 28.6 (10-20); Calcium 8.4 mg/dl (8.5-10.1); Creatinine Clr Calc Pharmacy 102.8 ml/min; Est GFR (Non-African American) 89.8 ml/min; Magnesium 2.2 mg/dl (1.7-2.4); Potassium 3.8 mmol/L (3.5-5.1)
--- NOTE | 2021-11-06 07:32 | XRay Report ---
XR chest 1V portable CLINICAL HISTORY: Stroke Like Symptoms COMPARISON STUDY: Chest radiograph October 02, 2019. FINDINGS: Lung volumes are normal. Lungs are clear. There is no pneumothorax or pleural effusion. Mil d cardiomegaly is noted. Mediastinal contours are normal. There is no evidence for pulmonary edema. IMPRESSION: No acute cardiopulmonary findings. Mild cardiomegaly. ACT 112: Negative or not required by law. Electronically signed by: Nima Littlejohn M.D. 11/06/2021 7:30 AM
[2021-11-06 08:01] LABS: Estimated Average Glucose 117 mg/dl; Hemoglobin A1C 5.7 % (4.5-5.6)
--- NOTE | 2021-11-06 09:57 | Neurology Consultation ---
Date of Consultation November 06, 2021 Assessment & Plan (1) Acute CVA (cerebrovascular accident): Acute ischemic stroke within the right posterior barbie presenting with left-sided numbness, weakness, horizontal diplopia, dizziness, left hemiataxia. Stable to improved this morning although continues to have some left-sided motor and sensory deficits. Diplopia and dizziness seem to be resolved. Poorly controlled hypertension appears to be a significant stroke risk factor for this patient. He also has a mildly elevated hemoglobin A1c which places him at increased risk for diabetes mellitus which would also be a stroke risk factor going forward. He is a former cigarette smoker although quit many years ago. He was not taking aspirin consistently as an outpatient and is not on other prescription medications. Follow-up results of echocardiogram. Continue with aspirin 81 mg/day and clopidogrel 75 mg/day, dual antiplatelet therapy for the next 3 weeks. Would then discontinue Plavix in favor of daily low-dose aspirin monotherapy. Again, he was not taking aspirin consistently and I would not consider this case an aspirin failure. Would continue with Crestor. Patient will need ongoing evaluation and management of his hypertension going forward. For the time being, permissive hypertension acceptable, systolic blood pressure 140 to 160 mmHg. Patient will need ongoing monitoring of his blood glucose as well, may be prediabetic. Consultation with PT/OT/speech therapy. Given patient's mild neurologic deficits at this point in time, I suspect a fairly good prognosis for recovery and independent functioning going forward. History of Present Illness Reason for Consultation: Stroke Requesting Physician: Tang Lund MD Attending Physician: Beni Freeman History of Present Illness The patient is a 81-year-old male with a chief complaint of left-sided numbness and weakness that began acutely yesterday afternoon at around 3:30 PM. He had associated low-grade headache. He also recalls experiencing horizontal diplopia, worse at a distance, resolved with closing either eye. His diplopia has largely resolved although he continues to report a subtle feeling of numbness and weakness affecting the left arm and leg. He denies any vision l oss. He did have some dizziness, no true vertigo. He did have some nausea and emesis prior to his assessment in the emergency department as well. He does not take any prescription medications as an outpatient, he does take aspirin inconsistently. He did have a telestroke consultation with [facility], was outside of the window for administration of thrombolytics. NIH stroke scale of [address] angiography of the head and neck negative for large vessel occlusion. 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 MRI of the brain did reveal an acute 9 mm infarct within the right posterior barbie, no hemorrhage or mass-effect. There was an element of generalized atrophy and small vessel ischemic disease as well. I reviewed the images as well as the radiologist's interpretation of these tests and agree. Again, the patient continues to report mild left-sided numbness and weakness. No headache, dizziness, dysarthria, or diplopia at this time. Additional details as below. Allergies Allergy/AdvReac Type Severity Reaction Status Date / Time No Known Allergies Allergy Unverified 11/05/21 22:04 Home Medications Medication Instructions Recorded Confirmed Type aspirin 81 mg tablet,delayed 81 mg PO 3XWK 11/05/21 11/05/21 History release Patient History Medical History Blood pressure elevated without history of HTN History of TIA (transient ischemic attack) Surgical History History of tonsillectomy Hx of appendectomy Family History Unknown Adopted Social History Smoking Status: Former smoker Hx Alcohol Use: No Hx Substance Use: No Preferred Language: Albanian Communication Ability: Effective Lean Engineer Required: No Beliefs That Will Affect Care: None marital status: Current Living Situation: Spouse current occupational status: retired Other Information That Helps Us Care for You: No Feels Safe at Home: Yes Safety Concerns: Feels Safe At This Time Assistive Devices: None Review of Systems Constitutional: no fever and no chills Eyes: as per Subjective / HPI and + diplopia; no blind spots Ear, Nose, Mouth, Throat: + hearing loss (left); no ear pain Respiratory: no cough and no dyspnea Cardiovascular: no chest pain and no palpitations Gastrointestinal: no constipation and no diarrhea/loose stools Genitourinary: no urinary incontinence or no urinary urgency Musculoskeletal: no muscle weakness and no muscle atrophy Integumentary: no rash and no lesions Neurologic: as per Subjective / HPI, + localized weakness, + loss of sensation and + headache(s); no tremor(s) and no seizure-like activity Psychiatric: no behavioral changes, no depression, no abnormal sleep pattern and no anxiety Hematologic / Lymphatic: no easy bruising and no lymphadenopathy Exam (Neuro) Constitutional: well developed and well nourished; no acute distress Eyes: normal visual carson by confrontation, PERRL, normal accommodation and EOM intact bilaterally; no fundoscopic abnormality, no nystagmus and no papilledema Cardiovascular: Vessels: normal carotid upstroke; no carotid bruit Neurologic: Oriented to:: Person, Place and Time Memory: Short Term Intact and Remote Intact Attention: Span Intact and Concentration Intact Language: Naming Objects and Repeating Phrases Speech Fluency: negative Dysarthria Speech Aphasia: negative Aphasia Fund of Knowledge: Current Events, Past History and Vocabulary Cranial Nerves: Normal II (Visual carson full to confrontation, visual acuity normal), III, IV, (Pupils equal round reactive to light and accommodation, eye movements normal), VII (There is no facial droop or weakness), VIII (Hearing intact), IX, X (Palate elevates to midline), XI (Shoulder shrug intact) and XII (Tongue protrudes to midline); Abnorm V (Decreased sensation to light touch along the left side of the face) Motor Strength: Pronator Drift Laterality: Left and Hemiparesis (mild) Laterality: Left; negative Normal Lower Extremities or Normal Upper Extremities Motor Tone: Normal Lower Extremities and Normal Upper Extremities Muscle Bulk/Involuntary Movements: No Involuntary Movements; negative Muscle Atrophy Sensation: Vibration Intact and Proprioception Intact; negative Light Touch Intact or Pain/Temperature Intact Coordination: Dysdiadochokinesia Laterality: Left, Finger-Nose Abnormal Laterality: Left and Heel-Stahl Abnormal Laterality: Left Deep Tendon Reflexes: Rt Triceps: 1+, Lt Triceps: 1+, Rt Biceps: 1+, Lt Biceps: 1+, Rt Brachioradialis: 1+, Lt Brachioradialis: 1+, Rt Patellar: 1+, Lt Patellar: 1+, Rt Ankle: 1+ and Lt Ankle: 1+ Special Tests: negative Babinski Present Details: Gait could not be tested in the context of patient's current neurological status. Results & Data ([facility]) Vital Signs (Past 12 Hours) Vital Signs Temp Pulse Resp BP BP Pulse Ox 11/06/21 08:00 36.8 C 64 22 169/91 H 99 11/06/21 04:48 36.7 C 68 16 150/88 H 96 11/06/21 02:24 36.7 C 73 20 137/78 97 11/05/21 22:08 69 19 173/104 H 97 Laboratory Results WBC 10.93, hemoglobin 13.3, hematocrit 39.8, platelet count 275, sodium 136, potassium 3.8, BUN 20, creatinine 0.70, glucose 108, hemoglobin A1c 5.7, magnesium 2.2, AST 13, ALT 11, troponin less than 0.03, triglycerides 152, cholesterol 114, LDL 45, VLDL 30, HDL 39, TSH 2.[address] of the head, CT angiography of the head and neck, and brain MRI are as described in the history of present illness. I reviewed the images as well as the radiologist interpretation of these tests. Electrocardiogram reveals a normal sinus rhythm. Coding Level of Care Code 68507 Initial In Care Lvl 3 Diagnoses Acute CVA (cerebrovascular accident) I63.9
[2021-11-06] MEDS ORDERED: hydrALAZINE HCL 20 MG/ML VIAL IV PRN (10:42)
--- NOTE | 2021-11-06 11:14 | XCELERA ---
[id number]
[2021-11-06] MEDS ORDERED: MECLIZINE 12.5 MG TAB PO STA (13:57)
--- NOTE | 2021-11-06 13:58 | Hospitalist Progress Note ---
Date of Service November 06, 2021 Assessment & Plan (1) Right pontine stroke: Plan: likely small vessel thrombotic stroke. can't rule out embolic based on echo findings today (see below). LDL 45. [id number] advising paulor. asa/plavix x 3 weeks, then asa monotherapy moving forward after that. PT, OT, speech therapy. will need rehab - GREAT rehab candidate. allow permissive BPs today, then start more aggressive BP control tomorrow. appreciate neuro consultation & recs. 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 (6) Dizziness: Plan: 2nd to #1 meclizine 12.5mg po x 1 now (7) Abnormal echocardiogram: Plan: no embolus seen however, AV and MV are thickened probably age-related, but will check blood cx's x 2 sets and crp/sed rate r/o SBE (8) DVT prophylaxis: Plan: add lovenox 40mg daily Plan: updated by phone this evening Admission and Anticipated Discharge Date Admission Date: November 05, 2021 Subjective patient still having significant weakness in L arm/leg, arm a little more weak than the leg no trouble swallowing he denies any recent dental work, fevers/chills/sweats/weight loss/anorexia, over the last 6 weeks (echo with thickened AV, MV) he continues with "dizziness" - not true vertigo, but not lightheadedness either - when he tries to get up he has nausea as well tele thus far nl by report Review of Systems Review of Systems: gen - no fevers or chills; good appetite up until the stroke CV - no cp pulm - no cough, no dyspnea GI - no abd pain Physical Exam Physical Exam: gen - NAD, pleasant speech - fluent/clear face - no droop mouth - MMM neck - no JVD heart - 10/15 systolic murmur RUSB/LSB, RRR, s1 s2 lungs - CTA b/l abd - soft NT BS+ ext - no edema neuro - strength left arm 3-4/5; strength left leg 4/5; RUE/RLE - 5/5 Results & Data Results & Data ([facility]) Vital Signs (Past 12 Hours) Vital Signs Temp Pulse Resp BP BP Pulse Ox 11/06/21 12:00 64 15 155/93 H 98 11/06/21 10:44 64 181/98 H 11/06/21 10:43 69 219/110 H 11/06/21 08:00 36.8 C 64 22 169/91 H 99 11/06/21 04:48 36.7 C 68 16 150/88 H 96 11/06/21 02:24 36.7 C 73 20 137/78 97 Laboratory Results BMP wnl B12 level <150 folate wnl Diagnostic Findings MRI brain - R pontine stroke CTA head/neck reviewed Echo - MV/AV thickening, SBE not exluded per reading PG Care Time/CCT Total # of Minutes Spent Total Time Spent with Patient: Total time spent is greater than 50% in coordination of care (as documented) at patient's floor/unit and/or counseling patient: Coding Level of Care Code 78974 Subseq Hosp Care Lvl 3 Diagnoses Right pontine stroke I63.50 Emphysema, unspecified J43.9 Hypertension I10 Hypertension type: unspecified Vitamin B12 deficiency E53.8 Prediabetes R73.03 DVT prophylaxis Z29.9 Dizziness R42 Abnormal echocardiogram R93.1 (1) Hypertension Hypertension type: unspecified Qualified Code(s): I10 - Essential (primary) hypertension
--- NOTE | 2021-11-06 14:03 | Electrocardiogram Report ---
Test Reason : Blood Pressure : / mmHG Vent. Rate : 075 BPM Atrial Rate : 075 BPM P-R Int : 160 ms QRS Dur : 096 ms QT Int : 410 ms P-R-T Axes : 010 021 048 degrees QTc Int : 458 ms Poor data quality, interpretation may be adversely affected Normal sinus rhythm Nonspecific ST abnormality No previous ECGs available Confirmed by Dwaine Sewell ([id number]) on 11/06/2021 2:02:56 PM Referred By: REFERRED SELF Confirmed By:Luis Miguel Sewell
--- NOTE | 2021-11-06 14:05 | Electrocardiogram Report ---
Test Reason : Blood Pressure : / mmHG Vent. Rate : 061 BPM Atrial Rate : 061 BPM P-R Int : 158 ms QRS Dur : 102 ms QT Int : 468 ms P-R-T Axes : 059 041 -02 degrees QTc Int : 471 ms Normal sinus rhythm Normal ECG When compared with ECG of 05-NOV-2021 20:14, (unconfirmed) T wave inversion now evident in Inferior leads Confirmed by Dwaine Sewell ([id number]) on 11/06/2021 2:05:23 PM Referred By: REFERRED SELF Confirmed By:Luis Miguel Sewell
[2021-11-06 16:43] LABS: Ferritin 177.1 ng/ml (8-388)
[2021-11-06 16:58] LABS: Folate (Folic Acid) 7.37 ng/ml (>5.38)
[2021-11-06 17:09] LABS: C Reactive Protein < 0.50 mg/dl (0-0.5); Iron 65 mcg/dl (35-175); Total Iron Binding Cap Calc 311 mcg/dl (250-450); Transferrin (FE) Percent Satur 21 % (20-50); Unsaturated Iron Binding Cap 246 mcg/dl (155-355)
[2021-11-06] MEDS: CYANOCOBALAMIN 1000 MCG/ML VIAL IM SCH (17:30)
[2021-11-06] MEDS: ROSUVASTATIN CALCIUM 20 MG TAB PO SCH (20:41)
[2021-11-06] MEDS: CLOPIDOGREL BISULFATE 75 MG TAB PO SCH (20:42)
[2021-11-06] MEDS ORDERED: CLOPIDOGREL BISULFATE 300 MG TAB PO SCH (21:00)
[2021-11-06] MEDS: ASPIRIN 81 MG ECTAB PO SCH (21:20)
[2021-11-07 07:43] LABS: Basophils # (auto) 0.04 K/uL (0-0.2); Basophils % (auto) 0.4 %; Eosinophils # (auto) 0.29 K/uL (0-0.5); Eosinophils % (auto) 2.9 %; Hematocrit (blood only) 41.7 % (42-52); Hemoglobin 14.1 g/dL (14.0-18.0); Immature Granulocytes # (auto) 0.03 K/uL (0.00-0.02); Immature Granulocytes % (auto) 0.3 %; Lymphocytes # (auto) 1.72 K/uL (1.2-3.4); Lymphocytes % (auto) 17.3 %; Mean Corpuscular Hemoglobin 31.5 pg (25-34); Mean Corpuscular Hgb Conc 33.8 g/dL (32-36); Mean Corpuscular Volume 93.1 fL (80-100); Mean Platelet Volume 10.1 fL (7.4-10.4); Monocytes # (auto) 0.75 K/uL (0.11-0.59); Monocytes % (auto) 7.6 %; Neutrophils % (auto) 71.5 %; Platelet Count 295 K/uL (130-400); RDW Coefficient of Variation 13.4 % (11.5-14.5); RDW Standard Deviation 45.4 fL (36.4-46.3); Red Blood Count 4.48 M/uL (4.7-6.1); White Blood Count 9.93 K/uL (4.8-10.8)
[2021-11-07] MEDS: CYANOCOBALAMIN 1000 MCG/ML VIAL IM SCH (08:00)
[2021-11-07 08:07] LABS: BUN Creatinine Ratio 22.1 (10-20); Calcium 8.8 mg/dl (8.5-10.1); Creatinine Clr Calc Pharmacy 91.8 ml/min; Est GFR (Non-African American) 86.3 ml/min; Potassium 3.8 mmol/L (3.5-5.1)
[2021-11-07] MEDS ORDERED: amLODIPine BESYLATE 5 MG TAB PO ONE (10:46)
--- NOTE | 2021-11-07 11:30 | Electrocardiogram Report ---
Test Reason : Blood Pressure : / mmHG Vent. Rate : 102 BPM Atrial Rate : 102 BPM P-R Int : 142 ms QRS Dur : 074 ms QT Int : 310 ms P-R-T Axes : 051 070 030 degrees QTc Int : 404 ms Poor data quality, interpretation may be adversely affected Sinus tachycardia Otherwise normal ECG When compared with ECG of 06-NOV-2021 06:28, Vent. rate has increased BY 41 BPM QRS duration has decreased QT has shortened Confirmed by Chace Zapata ([id number]) on 11/07/2021 11:30:09 AM Referred By: REFERRED SELF Confirmed By:Chace Zapata
[2021-11-07] MEDS: ENOXAPARIN INJ 40 MG/0.4 ML SYR SQ SCH (12:54)
[2021-11-07] MEDS ORDERED: ACETAMINOPHEN 500 MG TAB PO ONE (13:30)
[2021-11-07] MEDS: ASPIRIN 81 MG ECTAB PO SCH (20:03)
[2021-11-07] MEDS: CLOPIDOGREL BISULFATE 75 MG TAB PO SCH (20:03)
[2021-11-07] MEDS: ROSUVASTATIN CALCIUM 20 MG TAB PO SCH (20:03)
--- NOTE | 2021-11-07 21:58 | Hospitalist Progress Note ---
Date of Service November 07, 2021 Assessment & Plan (1) Right pontine stroke: Plan: likely small vessel thrombotic stroke. can't rule out embolic based on echo findings but blood cx's negative and sed rate/crp are normal - endocarditis not suspected. LDL 45. [id number] advising crestor. asa/plavix x 3 weeks, then asa monotherapy moving forward after that. PT, OT, speech therapy appreciated. will need rehab - GREAT inpatient rehab candidate. He was previously working full-time and fully independent. Start more aggressive BP control today - added amlodipine 5mg daily. Adjust as needed. appreciate neuro consultation & recs. 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 (6) Dizziness: Plan: 2nd to #1 meclizine 12.5mg x1 yesterday resolved (7) Abnormal echocardiogram: Plan: no embolus seen however, AV and MV are thickened probably age-related, but checked blood cx's x 2 sets and crp/sed rate thus far cx's are negative doubtful he has SBE (8) DVT prophylaxis: Plan: cont lovenox 40mg daily Plan: updated by phone yesterday evening dispo - rehab, SNF vs acute inpatient - EXCELLENT inpt rehab candidate Admission and Anticipated Discharge Date Admission Date: November 05, 2021 Subjective had headache earlier today - now improved eating well no dysphagia speech clear he thinks the LUE/LLE are mildly stronger, but ambulating today was very difficult for him we had lengthy discussion about rehab options post-discharge --- his first desired option is [facility]; we also discussed [facility] tele - no a.fib/flutter Review of Systems Review of Systems: gen - no fevers cv - no cp pulm - no dyspnea or cough GI - no N/V Physical Exam Physical Exam: gen - NAD, pleasant speech - fluent/clear face - no droop mouth - MMM neck - no JVD heart - 1/6 systolic murmur RUSB/LLSB, RRR, s1 s2 lungs - CTA b/l abd - soft NT BS+ ext - no edema, pulses 2+ b/l neuro - strength left arm 4/5; strength left leg 4+/5; RUE/RLE - 5/5 Results & Data Results & Data ([facility]) Vital Signs (Past 12 Hours) Vital Signs Temp Pulse Pulse Resp BP Pulse Ox 11/07/21 19:30 37.1 C 68 20 137/83 95 11/07/21 15:30 37.0 C 62 16 154/79 H 93 11/07/21 14:19 66 11/07/21 12:56 71 20 155/92 H 97 11/07/21 10:32 37.3 C 68 20 165/81 H 98 Laboratory Results Laboratory Results - last 24 hr 11/07/21 11/07/21 11/07/21 07:27 07:27 20:12 WBC 9.93 RBC 4.48 L Hgb 14.1 Hct 41.7 L MCV 93.1 MCH 31.5 MCHC 33.8 RDW Std Deviation 45.4 RDW Coeff of Maritza 13.4 Plt Count 295 MPV 10.1 Immature Gran % (Auto) 0.3 Neut % (Auto) 71.5 Lymph % (Auto) 17.3 [place] % (Auto) 7.6 Eos % (Auto) 2.9 Baso % (Auto) 0.4 Neut # (Auto) 7.10 H Lymph # (Auto) 1.72 [place] # (Auto) 0.75 H Eos # (Auto) 0.29 Baso # (Auto) 0.04 Immature Gran # (Auto) 0.03 H Sodium 138 Potassium 3.8 Chloride 106 Carbon Dioxide 26 Anion Gap 6 BUN 17 Creatinine 0.77 Est Cr Clr Drug Dosing 91.8 Est GFR ( Amer) 100.0 Est GFR (Non-Af Amer) 86.3 BUN/Creatinine Ratio 22.1 H Glucose 87 POC Glucose 119 H Calcium 8.8 PG Care Time/CCT Total # of Minutes Spent Total Time Spent with Patient: Total time spent is greater than 50% in coordination of care (as documented) at patient's floor/unit and/or counseling patient: Coding Level of Care Code 92900 Subseq Hosp Care Lvl 2 Diagnoses Right pontine stroke I63.50 Emphysema, unspecified J43.9 Hypertension I10 Hypertension type: unspecified Vitamin B12 deficiency E53.8 Prediabetes R73.03 Dizziness R42 Abnormal echocardiogram R93.1 DVT prophylaxis Z29.9 (1) Hypertension Hypertension type: unspecified Qualified Code(s): I10 - Essential (primary) hypertension
[2021-11-08 06:45] LABS: BUN Creatinine Ratio 27.5 (10-20); Calcium 8.7 mg/dl (8.5-10.1); Creatinine Clr Calc Pharmacy 102.7 ml/min; Est GFR (African American) 104.6 ml/min; Est GFR (Non-African American) 90.3 ml/min; Potassium 3.7 mmol/L (3.5-5.1)
[2021-11-08] MEDS: amLODIPine BESYLATE 5 MG TAB PO SCH (07:44)
[2021-11-08] MEDS: CYANOCOBALAMIN 1000 MCG/ML VIAL IM SCH (07:44)
[2021-11-08] MEDS: ENOXAPARIN INJ 40 MG/0.4 ML SYR SQ SCH (07:45)
--- NOTE | 2021-11-08 14:43 | Hospitalist Progress Note ---
Date of Service November 08, 2021 Assessment & Plan (1) Right pontine stroke: Plan: Admitted 11/05 with acute L sided numbness/weakness, vision changes/dizziness. Severe HTN 190/110s on presentation. NIHSS 9. CTH 11/05 no hemorrhage CTA H/N 11/05 with moderate stenosis of L vertebral artery otherwise unremarkable angiogram head/neck No TPA given presentation >4.5h s/p symptom onset MRI Brain 11/06 right posterior barbie infarct Echo 11/06: thickening/calcification of aortic valve w/o clear vegetation. normal LVEF. mild LVH. no pfo/shunt. mild MAC Likely small vessel thrombotic etiology. Less likely embolic Echo findings cannot r/o IE but blood cx negative & ESR/CRP normal - endocarditis not suspected. Possible prior TIA remotely. Not on home meds. Inconsistent primary care. Suspect outpatient HTN poorly controlled. Remote smoking history. Deficits improving - Appreciate neuro recs - Aspirin/Clopidogrel x3wk. Then ASA monotherapy - Rosuvastatin 20 - HTN management as below - PT, OT, speech therapy appreciated. Awaiting inpatient rehab placement ([facility]? not vaccinated) (2) Hypertension: Plan: Not previously treated - Amlodipine 5mg daily - Start losartan 25mg tomorrow - uptitrate as needed. (3) Emphysema, unspecified: Plan: Noting on imaging. Remote smoking history quit many years ago. No COPD symptoms (4) Vitamin B12 deficiency: Plan: B12 156 11/06/21 - IM injections daily x 5 days started 11/06 - PO replacement thereafter (5) Prediabetes: Plan: HbA1C 5.7% Lifestyle modification (6) Dizziness: Plan: 2/2 CVA. Resolved (7) DVT prophylaxis: Plan: cont lovenox 40mg daily Plan: updated in person today Dispo - SNF ([facility]) vs Acute inpatient rehab ([facility]). Appreciate CM. Note, pt is unvaccinated & unwilling to get vaccine at present. Medically ready for dispo. Per last CM note [facility] accepted but patient now favoring [facility] given ability for more intensive PT to facilitate recovery Admission and Anticipated Discharge Date Admission Date: November 05, 2021 Subjective Feeling ok Feels L sided weakness slowly improving -anxious to get back to complete baseline Ongoing difficulty grasping w/ L hand. Also notes L leg ongoing mild weakness. All of these cotinue to improve. L sided numbness/tingling also improving MORENO resolved High normal BPs 150/90s AM RFP unremarkable Anxious to determine disposition - favoring [facility] since he would get more intensive PT. Not willing to get vaccinated if that is a criteria for placement. Review of Systems Review of Systems: No CP SOB Abd pain NVDC eating well No edema No MORENO confusion dizziness blurry vision Physical Exam Physical Exam: General: Well appearing, sitting in chair comfortably CV: Normal rate, regular rhythm. No murmurs. Resp: Breathing comfortably on room air. Lungs clear to auscultation bilaterally. No wheezes, crackles, or rhonchi Abd: Soft, nontender Ext: Warm, well perfused. Neuro: CN2-12 intact. LUE hand weakness, arm strength 4/5, LE strength preserved on MMT Results & Data Results & Data ([facility]) Vital Signs (Past 12 Hours) Vital Signs Temp Pulse Pulse Resp BP Pulse Ox 11/08/21 11:16 98.4 F 65 18 142/79 H 97 11/08/21 06:48 98.1 F 59 L 20 175/90 H 97 11/08/21 06:26 63 11/08/21 04:04 98.1 F 59 L 20 160/91 H 95 PG Care Time/CCT Total # of Minutes Spent Total Time Spent with Patient: Total time spent is greater than 50% in coordination of care (as documented) at patient's floor/unit and/or counseling patient: Coding Level of Care Code 21078 Subseq Hosp Care Lvl 2 Diagnoses Right pontine stroke I63.50 Emphysema, unspecified J43.9 Hypertension I10 Hypertension type: unspecified Vitamin B12 deficiency E53.8 Prediabetes R73.03 Dizziness R42 DVT prophylaxis Z29.9 (1) Hypertension Hypertension type: unspecified Qualified Code(s): I10 - Essential (primary) hypertension
[2021-11-08] MEDS: ROSUVASTATIN CALCIUM 20 MG TAB PO SCH (21:22)
[2021-11-08] MEDS: ASPIRIN 81 MG ECTAB PO SCH (21:23)
[2021-11-08] MEDS: CLOPIDOGREL BISULFATE 75 MG TAB PO SCH (21:23)
[2021-11-09] MEDS: ENOXAPARIN INJ 40 MG/0.4 ML SYR SQ SCH (08:10)
[2021-11-09] MEDS: CYANOCOBALAMIN 1000 MCG/ML VIAL IM SCH (08:10)
[2021-11-09] MEDS: amLODIPine BESYLATE 5 MG TAB PO SCH (08:10)
[2021-11-09] MEDS ORDERED: LOSARTAN POTASSIUM 25 MG TAB PO SCH (09:00)
[2021-11-09] MEDS ORDERED: STROKE PATIENT DISCHARGE STA (13:18)
--- NOTE | 2021-11-09 13:19 | Discharge Summary ---
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 He developed left sided (upper and lower extremity) weakness. Generalized blurry vision. Dull constant frontal headache 7/10, currently milder, 3/10. Nausea, vomiting w/ movement. No room spinning. Mild lightheadedness. No chest pain sob diaphoresis + L sided constant paresthesia. Denies any mental status changes. Mild expressive aphasia getting words out, seems better since 9PM. Family did not notice and speech deficits other than slight pausing before speaking. Family ove him to ED. Not covid immunized. Lived w/ biological mom. Denies RI or stroke hx on mother's side. Former smoker, quit 40 years ago, smoked 30 years x 1.5ppd. No illicit substances. No EtOH. Most recent NIH stroke scale at 2034, 8 points; partial hemianopia, L leg weakness. + limb ataxia and loss of sensation. Denies prior PMHx of DM. ED course: Stroke alert called. TPA not indicated. Aspirin 324, crestor 20, plavix 300 advised. MRI to be ordered during daytime. Principal Diagnosis Right pontine ischemic stroke B12 deficiency Discharge Exam Constitutional WD/WN, vitals as above Eyes PERRL, conjunctivae normal, anicteric sclerae Respiratory normal respiratory effort, lungs clear to auscultation Cardiovascular RRR, no murmur, no edema Gastrointestinal (Abdomen) normal bowel sounds, soft, nontender, no hepatosplenomegaly Musculoskeletal no cyanosis or clubbing, extremities motor strength 5/5 Skin no rashes, warm and dry Neurologic moves all extremities, + focal motor deficit (LUE 4/5) and awake; not confused Motor/Sensory: + pronator drift (mild on left side) Psychiatric A+Ox3, euthymic affect Discharge Data Allergies Allergy/AdvReac Type Severity Reaction Status Date / Time No Known Allergies Allergy Unverified 11/05/21 22:04 Consultations 11/06/21 02:24 Consult Neurology Routine Ordered Studies 11/05/21 20:15 CT angio head w con Stat CT angio neck with con Stat CT head/brain wo con Stat IMPRESSION: 1. There is no hemorrhage, mass effect, or evidence of acute territorial ischemia by CT criteria. 2. Unremarkable CT angiogram of the brain. 3. 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 4. Otherwise unremarkable CT angiogram of the neck. 5. Emphysema. 11/06/21 02:24 MR brain wo/w con Routine IMPRESSION: 1. 9 mm acute infarct within the right posterior barbie. No mass effect. No hemorrhage. 2. No intracranial mass or pathologic enhancement. 3. Moderate atrophy and small vessel disease. Hospital Course (1) Right pontine stroke: Emir Shaw is a 81 year old male admitted to [facility] from November 05-2021 due to left-sided numbness and weakness. He was diagnosed with a right-sided ischemic pontine stroke. This was treated with Physical and Occupational Therapy and requiring further rehabilitation on discharge. He was started on dual antiplatelets (aspirin and clopidogrel) for stroke risk reduction for 3 weeks and then recommend continuing aspirin alone indefinitely. Rosuvastatin also started for stroke risk reduction. Amlodipine and losartan started for hypertension to reduce risk further strokes - recommended to follow up with his PCP for continued management of this.=. 30-day patient monitor arranged to assess for rhythm abnormalities associated with strokes. These results should be sent to his PCP. He was also diagnosed with B12 deficiency (156 pg/ml) which may be contributing towards his neurological symptoms including dizziness. He was started on intramuscular injections during his hospital stay and should continue on oral supplements as prescribed. He should follow up with his PCP for continued management of this. He required ongoing rehabilitation on discharge and was discharged to [facility] for ongoing inpatient physical therapy. (2) Hypertension: (3) Emphysema, unspecified: (4) Vitamin B12 deficiency: (5) Prediabetes: (6) Dizziness: Total Time Total Time Spent Total Time Spent (In Minutes): 45 Discharge Plan Discharge Items Patient Disposition: Home - Self-Care Reason For Visit: STROKE LIKE SYMPTOMS Discharge Diagnosis: Right pontine ischemic stroke B12 deficiency Activity: Resume your previous activity Non-emergency contact: Neurologist Call non-emergency contact if: you have any medication questions and your symptoms worsen Follow-up/Referrals: Ash Moura MD [Physician] - (4-6 weeks. CVA f/u) Lisa Barry PA-C [Primary Care Provider] - (1-2 weeks for BP management s/p CVA) Diet: Carb Consistent or DM2 and Heart Healthy Addtl Attending Provider Instructions: You are admitted to [facility] from November 05-2021 due to left-sided numbness and weakness. You were diagnosed with a right-sided ischemic pontine stroke. This was treated with Physical and Occupational Therapy and requiring further rehabilitation on discharge. You were started on dual antiplatelets (aspirin and clopidogrel) for stroke risk reduction for 3 weeks and then recommend continuing aspirin alone indefinitely. Rosuvastatin also started for stroke risk reduction. Amlodipine and losartan started for blood pressure management to also reduce risk of further strokes - please continue to follow-up with your primary care physician for ongoing management of this. 30-day patient monitor arranged to assess for rhythm abnormalities associated with strokes. Please call your PCP in 1 week if if you do not receive a call for this to be set up. You were also diagnosed with B12 deficiency which may be contributing towards your neurological symptoms including dizziness. You were started on intramuscular injections during her hospital stay and should continue on oral supplements as prescribed. Please follow-up with your primary care physician regarding this. Pending Studies at Discharge: No Stand-Alone Forms: Medications to Prevent Stroke, [facility], Smoking Cessation Medications and DC Order Prescriptions: New clopidogrel 75 mg Tablet 75 mg PO QPM 17 Days Qty: 17 RF: 0 amlodipine [Norvasc] 5 mg Tablet 5 mg PO QAM Qty: 30 RF: 0 losartan 25 mg Tablet 25 mg PO QAM Qty: 30 RF: 0 rosuvastatin [Crestor] 20 mg Tablet 20 mg PO QPM Qty: 30 RF: 0 aspirin 81 mg Tablet,Delayed Release (Dr/Ec) 81 mg PO QPM Qty: 30 RF: 0 B12 Active 1,000 mcg tablet,chewable 1,000 mcg PO DAILY Qty: 30 RF: 0 Discontinued aspirin [Aspir-Low] 81 mg Tablet,Delayed Release (Dr/Ec) 81 mg PO 3XWK RF: 0 Discharge Orders: Discharge Order (Routine); Ordered 11/09/21 Ordered By: Beni Paredes/Other Patient Handouts: Stroke: Taking Medicines, Stroke: Resources and Support, Hypertension Stroke Link, Stroke Regaining Movement, Stroke Self Care After, Healthy Lifestyle to Prevent ... Admission Data Admit Date/Time: 11/05/21 23:52 Attending Provider: Beni Kyle Admit Provider: Tang Lund Primary Care Provider: Lisa Barry Other Providers: Ash Moura ; Jocelyn Sethi ; Beni Freeman Other Interventions: Discharge Summary Assessment (RN) Last Done: 11/09/21 14:02 Coding Level of Care Code D/C DAY MANAGEMENT >30 MINS Diagnoses Right pontine stroke I63.50 Hypertension I10 Hypertension type: unspecified Emphysema, unspecified J43.9 Vitamin B12 deficiency E53.8 Prediabetes R73.03 Dizziness R42
== END 2021-11-09 15:41 | disposition home or self-care (01) | DRG 65 ==
LOC: ED 20:01 → SUATTDRO 23:52 → EDINP 23:52 → 2N 11-06 02:22

== ENCOUNTER 2022-02-01 14:35 | Observation (INO) ==
[2022-02-01] MEDS ORDERED: ACETAMINOPHEN 500 MG TAB PO STA (15:09)
[2022-02-01] MEDS ORDERED: SODIUM CHLORIDE 0.9% 1000ML 1,000 ML IV ONE (15:09)
--- NOTE | 2022-02-01 15:14 | Emergency Department Note ---
Impression & Plan COVID-19, Elevated troponin, Generalized weakness, Elevated d-dimer ED Provider Note Name: MARSHALL NEAL Age: 81 Sex: M Arrives Via: Walk-In Informant: Patient, ED Provider: Devon Brandon MD Chief Complaint: Illness Impression: As Per Impressions Above Medical Decision Makin-year-old gentleman with a history of a stroke a few months ago and some residual left-sided weakness. He arrives for evaluation of worsening weakness over the last 12 hours and a junky cough last 24 hours with some generalized fatigue and illness. Patient looks unwell but his not in extremis. He has a low-grade fever he is mildly hypoxic and his lungs sound quite coarse. Chest x- ray is with diffuse left-sided infiltrate. Labs are consistent with an elevated troponin. His white blood cell count is not significantly elevated. Given the infiltrate he was given empiric antibiotics after blood cultures were obtained. He is not at this time severe septic or in septic shock. He was given some IV fluids and actually seemed to perk up a bit with this. His troponin is significantly elevated though his EKG is without acute ischemia other than some mild ST depressions compared to old EKG. As he is having no chest pain I feel this is unlikely truly primarily ACS at this time. His COVID-19 test ended up returning positive. Given the elevated troponin, sats in the low 90s and COVID- positive status I feel that hospitalization is clearly indicated. I reviewed this with the hospitalist who requested a D-dimer be obtained which was significantly elevated at which point a CTA was obtained. CTA does not reveal any PE or dissection at this time. Hospitalist in to evaluate and manage further. I do not feel that starting anticoagulation emergently is required as hospitalist will manage this. I did give patient some Decadron given the decreased oxygen saturation in the setting of COVID-19. Prior Medical Record and Triage/Nursing Notes reviewed by Me Additional history obtained from chart and Differentials:Reactive airway disease, pneumonia, pneumothorax, COPD, CHF, infections, cardiac ischemia, pulmonary embolism, musculoskeletal, gastrointestinal, as well as other pathologies. Vital Signs: reviewed and remarkable for febrile Interventions: Normal saline bolus 1 L IV, Decadron 10 mg IV, Zosyn 4.5 g IV Labs:Reviewed and remarkable for elevated troponin, positive COVID-19, elevated D-dimer Imaging:Chest x-ray reveals left-sided infiltrates as per radiologist read below EKG:Per My Interpretation: Indication weakness: NSR 90bpm, qtc 450. No Ectopy. No Ischemia. Compared to EKG 11/06/2021 no significant changes other than mild lateral st depressions nonspecific. Cardiac/Tele Monitoring: Cardiac Monitoring: An Order was placed for continuous cardiac monitoring. The monitor shows a rate of 90 with a normal sinus rhythm. Consults:Dr Rosario DENTON Hospitalist Plan: Disposition:Hospitalization. Condition: Good History of Present Illness:81-year-old gentleman arrives for evaluation of weakness. Patient notes he went to bed feeling all right yesterday. Had noted that he been having an increasing cough as the day went on but otherwise was feeling fine. When he woke up this morning he felt very weak and tired. He felt like he could not get up. Over the course the next few hours he was able to get up and get into his stair lift to get downstairs and have breakfast. He admits he did not have an appetite and did not eat much today. As the days gone on he has had worsening weakness. He notes a previous stroke with left-sided deficits and had numbness. He states that his stroke symptoms seem to have worsened throughout the day. No falls, trauma, injuries. denies any fevers, syncope, shortness of breath, leg swelling, abdominal pain, nausea, vomiting, urinary/bowel symptoms, headache, sore throat, runny nose or other concerning signs or symptoms. He has not been on any occasions. He has not had any Tylenol today. He had a stroke with resultant left-sided deficits for which she is on aspirin 81 mg daily. ROS: See above HPI for pertinent positives & negatives. A total of 10 systems reviewed and were otherwise negative. Past Medical History:CVA, hypertension, hyponatremia, hyperglycemia, Past Surgical History:Appendectomy, tonsillectomy Family History:See Below Social History:See Below Home Medications:See Below Allergies:No known drug allergies Vitals:Blood Pressure: 145/89, Pulse 89, RR 16, T 37.8C, O2 96% on RA Physical Exam: GENERAL: Patient is tired/unwell appearing and in mild distress. EYES: No scleral icterus, unremarkable pupils. ENT: Mucous membranes dry, no nasal congestion. NECK: No masses appreciated, nomeningismus, trachea is midline. RESPIRATORY: moderate dyspnea with junky cough and coarse breath sounds throughout CARDIOVASCULAR: Regular rate and rhythm.No murmurs, rubs, gallops appreciated. GASTROINTESTINAL: Abdomen soft, non-tender, no peritonitis.Bowel sounds positive.No masses appreciated. BACK: No midline tenderness, no CVA tenderness EXTREMITIES: Normal motion all extremities, no cyanosis, no edema. NEUROLOGIC: Alert and oriented, no acute motor or sensory deficits, no focal weakness, cranial nerves grossly intact. SKIN: No rash, no jaundice, no diaphoresis. PSYCH: Appropriate GCS: 15 ED Course: Times/Reassessments: Patient does appear much improved with some IV fluids. He is breathing comfortably though his sats have dropped to 90 to 92% on room air. I discussed the findings with him and and she is agreeable to steroids but request to be consulted with any plan medication for his treatment of COVID. Devon Brandon MD Past Med/Surg History Medical History (Updated 02/02/22 @ 00:11 by Alicia Ponce MD) Blood pressure elevated without history of HTN History of CVA (cerebrovascular accident) History of TIA (transient ischemic attack) Hypertension Prediabetes Vitamin B12 deficiency Surgical History (Updated 02/02/22 @ 00:11 by Alicia Ponce MD) History of tonsillectomy Hx of appendectomy Family History Unknown Adopted Social History Smoking Status: Former smoker Hx Alcohol Use: No Hx Substance Use: No Preferred Language: Citizen Of [place] Communication Ability: Effective Driller Hand Required: No Beliefs That Will Affect Care: None marital status: Current Living Situation: Spouse current occupational status: retired Feels Safe at Home: Yes Assistive Devices: Denture - Upper and Glasses Allergies Allergies Allergy/AdvReac Type Severity Reaction Status Date / Time No Known Allergies Allergy Verified 11/30/21 12:48 Home Meds Previous Rx's Medication Instructions Recorded aspirin 81 mg tablet,delayed 81 mg PO QPM #30 tab 11/09/21 release amlodipine 5 mg tablet (Norvasc) 5 mg PO QAM #30 tab 12/14/21 losartan 25 mg tablet 25 mg PO QAM #30 tab 12/14/21 mecobalamin (vitamin B12) 1,000 1,000 mcg PO DAILY #30 tab 12/14/21 mcg chewable tablet (B12 Active) rosuvastatin 20 mg tablet (Crestor) 20 mg PO QPM #30 tab 12/14/21 Results & Data (ED) Vital Signs Vital Signs - 24 hr 02/01/22 14:40 02/01/22 15:07 02/01/22 16:47 Temperature 37.8 C H Temperature Source Temporal Artery Scan Pulse Rate 97 H Pulse Rate [Apical] 89 76 Pulse Rhythm [Apical] Regular Respiratory Rate 20 16 15 Respiratory Effort / Characteristics Non-Labored Spontaneous Respiratory Depth Normal Normal Respiratory Pattern Regular Blood Pressure 157/81 H Blood Pressure [Left Arm] 145/89 H Blood Pressure Mean 106 Blood Pressure Mean [Left Arm] 107 Pulse Oximetry 96 96 91 Oxygen Delivery Method Room Air Room Air Room Air Sepsis Recent Fever Within 48 Hours No Sepsis New/Unexplained Change in Mental Status No Sepsis Action Taken by Nursing No Action Required 02/01/22 18:00 Temperature Temperature Source Pulse Rate Pulse Rate [Apical] 68 Pulse Rhythm [Apical] Respiratory Rate 20 Respiratory Effort / Characteristics Non-Labored Spontaneous Respiratory Depth Normal Respiratory Pattern Regular Blood Pressure Blood Pressure [Left Arm] 133/82 Blood Pressure Mean Blood Pressure Mean [Left Arm] 99 Pulse Oximetry 96 Oxygen Delivery Method Room Air Sepsis Recent Fever Within 48 Hours Sepsis New/Unexplained Change in Mental Status Sepsis Action Taken by Nursing Laboratory Data Result diagrams: 02/02/22 03:58 02/02/22 03:58 Lab Results 02/01/22 02/01/22 02/01/22 Range/Units 15:06 15:06 15:06 WBC 5.32 (4.8-10.8) K/uL RBC 3.96 L (4.7-6.1) M/uL Hgb 12.5 L (14.0-18.0) g/dL Hct 37.0 L (42-52) % MCV 93.4 (80-100) fL MCH 31.6 (25-34) pg MCHC 33.8 (32-36) g/dL RDW Std Deviation 46.2 (36.4-46.3) fL RDW Coeff of Maritza 13.4 (11.5-14.5) % Plt Count 151 (130-400) K/uL MPV 10.6 H (7.4-10.4) fL Immature Gran % (Auto) 0.4 % Neut % (Auto) 74.6 % Lymph % (Auto) 16.0 % Laurel % (Auto) 7.5 % Eos % (Auto) 1.3 % Baso % (Auto) 0.2 % Neut # (Auto) 3.97 (1.4-6.5) K/uL Lymph # (Auto) 0.85 L (1.2-3.4) K/uL Laurel # (Auto) 0.40 (0.11-0.59) K/uL Eos # (Auto) 0.07 (0-0.5) K/uL Baso # (Auto) 0.01 (0-0.2) K/uL Immature Gran # (Auto) 0.02 (0.00-0.02) K/uL D-Dimer (0-500) ug/L FEU Sodium 134 L (136-145) mmol/L Potassium 4.1 (3.5-5.1) mmol/L Chloride 101 (98-107) mmol/L Carbon Dioxide 25 (21-32) mmol/L Anion Gap 8 (3-11) BUN 24 H (6-23) mg/dl Creatinine 1.05 (0.6-1.4) mg/dl Est Cr Clr Drug Dosing Not Reportable Est GFR ( Amer) 77.9 ml/min Est GFR (Non-Af Amer) 67.2 ml/min BUN/Creatinine Ratio 22.9 H (10-20) Glucose 80 (70-99(Fasting)) mg/dl Lactate (0.4-2.0) mmol/L Calcium 8.8 (8.5-10.1) mg/dl Magnesium 2.1 (1.7-2.4) mg/dl Total Bilirubin 1.8 H (0.2-1.0) mg/dl Direct Bilirubin 0.4 H (0-0.2) mg/dl AST 33 (13-39) U/L ALT 24 (7-52) U/L Alkaline Phosphatase 52 (34-104) U/L Troponin I High Sens 981.5 H* (0-20) pg/ml C-Reactive Protein (0-0.5) mg/dl Total Protein 7.6 (6.0-8.3) gm/dl Albumin 4.3 (3.4-5.0) gm/dl Procalcitonin 0.05 (0-0.5) ng/ml SARS-CoV-2 (PCR) (Negative) Influenza Type A (PCR) (Neg) Influenza Type B (PCR) (Neg) RSV (RT-PCR) (Neg) 02/01/22 02/01/22 02/01/22 Range/Units 15:06 15:30 15:35 WBC (4.8-10.8) K/uL RBC (4.7-6.1) M/uL Hgb (14.0-18.0) g/dL Hct (42-52) % MCV (80-100) fL MCH (25-34) pg MCHC (32-36) g/dL RDW Std Deviation (36.4-46.3) fL RDW Coeff of Maritza (11.5-14.5) % Plt Count (130-400) K/uL MPV (7.4-10.4) fL Immature Gran % (Auto) % Neut % (Auto) % Lymph % (Auto) % Laurel % (Auto) % Eos % (Auto) % Baso % (Auto) % Neut # (Auto) (1.4-6.5) K/uL Lymph # (Auto) (1.2-3.4) K/uL Laurel # (Auto) (0.11-0.59) K/uL Eos # (Auto) (0-0.5) K/uL Baso # (Auto) (0-0.2) K/uL Immature Gran # (Auto) (0.00-0.02) K/uL D-Dimer (0-500) ug/L FEU Sodium (136-145) mmol/L Potassium (3.5-5.1) mmol/L Chloride (98-107) mmol/L Carbon Dioxide (21-32) mmol/L Anion Gap (3-11) BUN (6-23) mg/dl Creatinine (0.6-1.4) mg/dl Est Cr Clr Drug Dosing Est GFR ( Amer) ml/min Est GFR (Non-Af Amer) ml/min BUN/Creatinine Ratio (10-20) Glucose (70-99(Fasting)) mg/dl Lactate 0.9 (0.4-2.0) mmol/L Calcium (8.5-10.1) mg/dl Magnesium (1.7-2.4) mg/dl Total Bilirubin (0.2-1.0) mg/dl Direct Bilirubin (0-0.2) mg/dl AST (13-39) U/L ALT (7-52) U/L Alkaline Phosphatase (34-104) U/L Troponin I High Sens (0-20) pg/ml C-Reactive Protein 2.63 H (0-0.5) mg/dl Total Protein (6.0-8.3) gm/dl Albumin (3.4-5.0) gm/dl Procalcitonin (0-0.5) ng/ml SARS-CoV-2 (PCR) POSITIVE A* (Negative) Influenza Type A (PCR) Negative (Neg) Influenza Type B (PCR) Negative (Neg) RSV (RT-PCR) Negative (Neg) 02/01/22 Range/Units 15:35 WBC (4.8-10.8) K/uL RBC (4.7-6.1) M/uL Hgb (14.0-18.0) g/dL Hct (42-52) % MCV (80-100) fL MCH (25-34) pg MCHC (32-36) g/dL RDW Std Deviation (36.4-46.3) fL RDW Coeff of Maritza (11.5-14.5) % Plt Count (130-400) K/uL MPV (7.4-10.4) fL Immature Gran % (Auto) % Neut % (Auto) % Lymph % (Auto) % Laurel % (Auto) % Eos % (Auto) % Baso % (Auto) % Neut # (Auto) (1.4-6.5) K/uL Lymph # (Auto) (1.2-3.4) K/uL Laurel # (Auto) (0.11-0.59) K/uL Eos # (Auto) (0-0.5) K/uL Baso # (Auto) (0-0.2) K/uL Immature Gran # (Auto) (0.00-0.02) K/uL D-Dimer 6970 H* (0-500) ug/L FEU Sodium (136-145) mmol/L Potassium (3.5-5.1) mmol/L Chloride (98-107) mmol/L Carbon Dioxide (21-32) mmol/L Anion Gap (3-11) BUN (6-23) mg/dl Creatinine (0.6-1.4) mg/dl Est Cr Clr Drug Dosing Est GFR ( Amer) ml/min Est GFR (Non-Af Amer) ml/min BUN/Creatinine Ratio (10-20) Glucose (70-99(Fasting)) mg/dl Lactate (0.4-2.0) mmol/L Calcium (8.5-10.1) mg/dl Magnesium (1.7-2.4) mg/dl Total Bilirubin (0.2-1.0) mg/dl Direct Bilirubin (0-0.2) mg/dl AST (13-39) U/L ALT (7-52) U/L Alkaline Phosphatase (34-104) U/L Troponin I High Sens (0-20) pg/ml C-Reactive Protein (0-0.5) mg/dl Total Protein (6.0-8.3) gm/dl Albumin (3.4-5.0) gm/dl Procalcitonin (0-0.5) ng/ml SARS-CoV-2 (PCR) (Negative) Influenza Type A (PCR) (Neg) Influenza Type B (PCR) (Neg) RSV (RT-PCR) (Neg) Administered Medications Albuterol (Albut/Ipratrop 3mg/0.5mg Neb 3 Ml Vial) 3 ml NEB Q6R [facility]; Protocol Stop: 03/03/22 21:20 Last Admin: 02/02/22 07:33 Dose: 3 ml Documented by: [id number] Admin: 02/02/22 02:25 Dose: Not Given Documented by: [id number] Admin: 02/01/22 22:34 Dose: Not Given Documented by: [id number] Amlodipine Besylate (Amlodipine Besylate 5 Mg Tab) 5 mg PO QAM [facility] Stop: 03/04/22 08:59 Last Admin: 02/02/22 09:10 Dose: 5 mg Documented by: [id number] Aspirin (Aspirin 81 Mg Ectab) 81 mg PO QPM [facility] Stop: 03/03/22 21:20 Last Admin: 02/01/22 22:42 Dose: 81 mg Documented by: [id number] Cyanocobalamin (Cyanocobalamin (B-12) 500 Mcg Tablet) 1,000 mcg PO DAILY [facility] Stop: 03/04/22 08:59 Last Admin: 02/02/22 09:10 Dose: 1,000 mcg Documented by: [id number] Enoxaparin Sodium (Enoxaparin Inj 40 Mg/0.4 Ml Syr) 40 mg SQ Q12H [facility] Stop: 03/03/22 19:44 Last Admin: 02/02/22 09:11 Dose: 40 mg Documented by: [id number] Admin: 02/01/22 22:40 Dose: 40 mg Documented by: [id number] Losartan Potassium (Losartan Potassium 25 Mg Tab) 25 mg PO QAM [facility] Stop: 03/04/22 08:59 Last Admin: 02/02/22 09:10 Dose: 25 mg Documented by: [id number] Rosuvastatin Calcium (Rosuvastatin Calcium 20 Mg Tab) 20 mg PO QPM [facility] Stop: 03/03/22 21:20 Last Admin: 02/01/22 22:42 Dose: 20 mg Documented by: [id number] Discontinued Medications Acetaminophen (Acetaminophen 500 Mg Tab) 1,000 mg PO NOW STA Stop: 02/01/22 15:10 Last Admin: 02/01/22 15:34 Dose: 1,000 mg Documented by: [id number] Dexamethasone Sodium Phosphate (DexamethasonePf 10 Mg/Ml Vial) 10 mg IV NOW ONE Stop: 02/01/22 16:43 Last Admin: 02/01/22 16:59 Dose: 10 mg Documented by: [id number] Sodium Chloride (Nss 1000ml) 1,000 mls @ 999 mls/hr IV .Q1H1M ONE Stop: 02/01/22 16:09 Last Infusion: 02/01/22 16:27 Dose: 0 mls/hr Documented by: [id number] Admin: 02/01/22 15:34 Dose: 999 mls/hr Documented by: [id number] Piperacillin Sod/Tazobactam Sod (Zosyn) 4.5 gm in 120 mls @ 240 mls/hr IV NOW ONE Stop: 02/01/22 16:49 Last Infusion: 02/01/22 16:59 Dose: 0 mls/hr Documented by: [id number] Admin: 02/01/22 16:27 Dose: 240 mls/hr Documented by: [id number] Ioversol (Optiray 320 125ml) 117 ml IV ONCE ONE Stop: 02/01/22 19:49 Last Admin: 02/01/22 19:49 Dose: 117 ml Documented by: [id number] Imaging Data Radiologist's Impression: Chest X-Ray 02/01/22 15:10 XR chest 1V portable CLINICAL HISTORY: cough weakness TECHNIQUE: Single frontal radiograph of the chest was obtained. Comparison: Comparison is made to chest one view 11/05/2021 FINDINGS: No lines and tubes are seen. The cardiomediastinal silhouette is normal. Lungs are underinflated. There is an ill-defined left lower lobe airspace opacity. No evidence of pleural effusion or pneumothorax. IMPRESSION: Ill-defined left lower lobe airspace opacity, which may represent atelectasis, pneumonia, and/or aspiration. ACT 112: Negative or not required by law. Electronically signed by: Salvador Salter M.D. 02/01/2022 4:16 PM Chest CTA 02/01/22 18:19 CT ANGIOGRAM OF THE CHEST CLINICAL HISTORY: Elevated d-dimer. Covid. COMPARISON STUDY: Chest x-ray dated 02/01/2022. TECHNIQUE: Following the IV administration of 117 cc of Optiray 320, CT angiogram of the chest was performed from the upper abdomen to the thoracic inlet utilizing the pulmonary embolus protocol. Images are reviewed in the axial, sagittal, and coronal planes. 3-D MIPS images are created and assessed. IV contrast was administered without complication. A dose lowering technique was utilized adhering to the principles of ALARA. CT DOSE: 465.60 mGy.cm FINDINGS: Thyroid: Atrophic. Thoracic aorta: Atherosclerotic change is noted in the thoracic aorta, which is normal in caliber and demonstrates standard 3-vessel arch anatomy. No dissection is seen. Pulmonary vasculature: The pulmonary trunk is normal in caliber. There are no filling defects identified in main, lobar, or segmental pulmonary branches to suggest pulmonary embolus. Heart: The heart is mildly enlarged and without pericardial effusion. The coronary arteries and mitral annulus are densely calcified. Lungs and pleural spaces: Evaluation of the lung parenchyma is modestly degraded by motion artifact. Mild emphysematous change is observed. There is no airspace consolidation typical for pneumonia or pleural effusion. Scarring/atelectasis is noted at the lung bases. A tiny calcified granulomas seen in the left lower lobe. The trachea and central airways appear clear. Mediastinum: There is no mediastinal lymphadenopathy. Martina: Clear. Axillae: There is no axillary lymphadenopathy. Upper abdomen: Partially visualized upper abdominal viscera is within normal limits. Skeletal structures: The skeletal structures are osteopenic. No lytic or blastic bony lesions are seen. Degenerative change is noted in the shoulders and thoracic spine. IMPRESSION: 1. There is no evidence of pulmonary embolus in the main, lobar, or segmental pulmonary arteries. 2. Cardiomegaly and mild emphysema. 3. There is no airspace consolidation or pleural effusion. 4. Additional findings as above. ACT 112: Negative or not required by law. Electronically signed by: Madhu Wright M.D. 02/01/2022 8:08 PM Discharge Plan Visit Data Chief Complaint: Weakness Stated Complaint: COULDN'T GET OUT OF BED, WEAKNESS ED Provider: Devon Brandon Discharge Problem: COVID-19, Elevated troponin, Generalized weakness, Elevated d-dimer Patient Disposition: Admitted As Inpatient Discharge Instructions Interventions: ED Discharge Assessment Last Done: 02/01/22 20:55
[2022-02-01 15:27] LABS: Basophils # (auto) 0.01 K/uL (0-0.2); Basophils % (auto) 0.2 %; Eosinophils # (auto) 0.07 K/uL (0-0.5); Eosinophils % (auto) 1.3 %; Hemoglobin 12.5 g/dL (14.0-18.0); Immature Granulocytes # (auto) 0.02 K/uL (0.00-0.02); Immature Granulocytes % (auto) 0.4 %; Lymphocytes # (auto) 0.85 K/uL (1.2-3.4); Mean Corpuscular Hemoglobin 31.6 pg (25-34); Mean Corpuscular Hgb Conc 33.8 g/dL (32-36); Mean Corpuscular Volume 93.4 fL (80-100); Mean Platelet Volume 10.6 fL (7.4-10.4); Monocytes % (auto) 7.5 %; Neutrophils # (auto) 3.97 K/uL (1.4-6.5); Neutrophils % (auto) 74.6 %; Platelet Count 151 K/uL (130-400); RDW Coefficient of Variation 13.4 % (11.5-14.5); RDW Standard Deviation 46.2 fL (36.4-46.3); Red Blood Count 3.96 M/uL (4.7-6.1); White Blood Count 5.32 K/uL (4.8-10.8)
--- NOTE | 2022-02-01 15:54 | Electrocardiogram Report ---
Test Reason : Blood Pressure : / mmHG Vent. Rate : 090 BPM Atrial Rate : 090 BPM P-R Int : 118 ms QRS Dur : 090 ms QT Int : 368 ms P-R-T Axes : 028 049 009 degrees QTc Int : 450 ms Poor data quality, interpretation may be adversely affected Normal sinus rhythm Abnormal ECG When compared with ECG of 06-NOV-2021 07:15, Questionable change in QRS duration Confirmed by Chace Zapata ([id number]) on 02/01/2022 3:54:14 PM Referred By: Confirmed By:Chace Zapata
[2022-02-01 15:55] LABS: Alanine Aminotransferase 24 U/L (7-52); Albumin Level 4.3 gm/dl (3.4-5.0); Alkaline Phosphatase 52 U/L (34-104); Anion Gap 8 (3-11); Aspartate Aminotransferase 33 U/L (13-39); BUN Creatinine Ratio 22.9 (10-20); Bilirubin Direct 0.4 mg/dl (0-0.2); Bilirubin,Total 1.8 mg/dl (0.2-1.0); Blood Urea Nitrogen 24 mg/dl (6-23); Calcium 8.8 mg/dl (8.5-10.1); Carbon Dioxide 25 mmol/L (21-32); Chloride 101 mmol/L (98-107); Est GFR (African American) 77.9 ml/min; Est GFR (Non-African American) 67.2 ml/min; Glucose 80 mg/dl (70-99(Fasting)); Magnesium 2.1 mg/dl (1.7-2.4); Potassium 4.1 mmol/L (3.5-5.1); Sodium 134 mmol/L (136-145); Total Protein 7.6 gm/dl (6.0-8.3)
[2022-02-01 15:58] LABS: Troponin I High Sensitivity 981.5 pg/ml (0-20)
--- NOTE | 2022-02-01 16:17 | XRay Report ---
XR chest 1V portable CLINICAL HISTORY: cough weakness TECHNIQUE: Single frontal radiograph of the chest was obtained. Comparison: Comparison is made to chest one view 11/05/2021 FINDINGS: No lines and tubes are seen. The cardiomediastinal silhouette is normal. Lungs are underinflated. The re is an ill-defined left lower lobe airspace opacity. No evidence of pleural effusion or pneumothora x. IMPRESSION: Ill-defined left lower lobe airspace opacity, which may represent atelectasis, pneumonia, and/or aspi ration. ACT 112: Negative or not required by law. Electronically signed by: Salvador Salter M.D. 02/01/2022 4:16 PM
[2022-02-01] MEDS ORDERED: PIPERACILLIN/TAZOBACTAM 4.5 GM/120 ML BAG IV ONE (16:20)
[2022-02-01] MEDS ORDERED: PIPERACILL/TAZOBAC CONSULT ACTIVE PRN (16:20)
[2022-02-01 16:32] LABS: Influenza A virus by PCR Negative (Neg); Influenza B virus by PCR Negative (Neg); RSV by PCR Negative (Neg)
[2022-02-01 16:38] LABS: SARS CoV2 RNA(COVID-19) InHosp POSITIVE (Negative)
[2022-02-01] MEDS ORDERED: dexAMETHasone**PF** 10 MG/ML VIAL IV ONE (16:42)
[2022-02-01 17:54] LABS: D Dimer 6970 ug/L FEU (0-500)
[2022-02-01] MEDS ORDERED: OPTIRAY 320 125ml IV ONE (19:48)
[2022-02-01] MEDS ORDERED: ACETAMINOPHEN 325 MG TAB PO PRN (19:57)
--- NOTE | 2022-02-01 20:12 | History & Physical Report ---
Date of Service February 01, 2022 Assessment & Plan (1) Acute hypoxemic respiratory failure due to COVID-19: Plan: Patient is a 81-year-old male presenting to the hospital for new onset weakness with episode of incontinence. Patient is found to be COVID-positive and is currently clinically stable. -Admit patient under observation to [facility] with telemetry -Acute hypoxemic respiratory failure secondary to COVID-19 with measured pulse ox less than 94% -Blood cultures taken in ED, sputum culture ordered, MRSA swab ordered -Incentive spirometry, flutter valve ordered -Oxygen as needed per protocol with saturation goal of greater than 90%. -Scheduled nebulized DuoNeb every 6 hours -CTA negative for blood clot at this time. -10 mg of Decadron given in the emergency department, placed order for 6 mg of Decadron IV daily -Patient declined remdesivir at this time, risks and benefits were discussed -Antibiotics withheld at this time given negative procalcitonin, no consolidation on chest x-ray or chest CT angiogram -Trend CBC and CRP (2) Elevated troponin: Plan: -Likely secondary to demand ischemia although ECG with some subtle changes, but no chest pain -Trend troponin every 6 hour -Limited echocardiogram in the morning to check for wall motion abnormalities and LVEF -Daily EKGs (3) Generalized weakness: Plan: -PT and OT consultation ordered -Likely has baseline weakness secondary to previous ischemic pontine CVA but now with acute illness causing weakness (4) Hypertension: Plan: - At goal, continue amlodipine and losartan (5) History of CVA (cerebrovascular accident): Plan: - Continue aspirin and rosuvastatin Diet: Heart healthy DVT prophylaxis: Lovenox 40 mg twice daily, SCDs Disposition: [facility] with telemetry CODE STATUS: DNR/DNI History of Present Illness Chief Complaint: Weakness Primary Care Provider: Lisa Barry PA-C Patient is a 81-year-old male with a past medical history of previous right pontine ischemic stroke, hypertension, and prediabetes who presented to the ED for the chief complaint of weakness. Patient reports that this morning he woke up and he felt that he was unable to get out of bed. He felt that his weakness was diffuse and he called his for assistance to get out of bed. At that time patient was assisted to the bathroom and it seems on his way to the bathroom he had an episode of incontinence which is a new symptom for him. Denies any pain with urination or increased frequency or urgency, denies suprapubic tenderness. Patient describes having cold-like symptoms starting on 01/31. His cold symptoms have included runny nose, cough that produces mucus, and some congestion. Otherwise patient was doing well up until this morning. Denies any history of fevers, chest pain, shortness of breath, nausea, or vomiting. Denies hematuria. Patient is not COVID or flu vaccinated. Patient reports no recent travel. Has never had a history of a blood clot. Reports that he he did have a family get together for at his daughter's house on Tuesday. Patient does not smoke. Patient does not consume alcohol. ED course: Patient arrived to the emergency room describing his symptoms which prompted having a CBC, CMP, D-dimer, COVID swab, troponin, C-reactive protein, and procalcitonin. Pertinent positives from his lab work shows a D-dimer of 6970 total bilirubin of 1.8 troponin of 981.5 and a C-reactive protein of 2.63. EKG showed ST depression in V5 with some QRS changes in leads III and aVF. Chest x-ray showed ill-defined left lower lobe airspace opacity. Chest CTA showed no evidence of pulmonary embolus, there was cardiomegaly and mild emphysema noted, no airspace consolidation or pleural effusion. Patient is COVID-19 positive. Medications given in the ED: 10 mg of dexamethasone, Zosyn, Tylenol, 1 L bolus of normal saline. Allergies Allergy/AdvReac Type Severity Reaction Status Date / Time No Known Allergies Allergy Verified 11/30/21 12:48 Home Medications Medication Instructions Recorded Confirmed Type aspirin 81 mg tablet,delayed 81 mg PO QPM #30 tab 11/09/21 02/01/22 Rx release amlodipine 5 mg tablet (Norvasc) 5 mg PO QAM #30 tab 12/14/21 02/01/22 Rx losartan 25 mg tablet 25 mg PO QAM #30 tab 12/14/21 02/01/22 Rx mecobalamin (vitamin B12) 1,000 1,000 mcg PO DAILY #30 tab 12/14/21 02/01/22 Rx mcg chewable tablet (B12 Active) rosuvastatin 20 mg tablet (Crestor) 20 mg PO QPM #30 tab 12/14/21 02/01/22 Rx Past Med/Surg History Medical History (Updated 02/02/22 @ 00:11 by Alicia Ponce MD) Blood pressure elevated without history of HTN History of CVA (cerebrovascular accident) History of TIA (transient ischemic attack) Hypertension Prediabetes Vitamin B12 deficiency Surgical History (Updated 02/02/22 @ 00:11 by Alicia Ponce MD) History of tonsillectomy Hx of appendectomy Family History Unknown Adopted Social History Smoking Status: Former smoker Hx Alcohol Use: No Hx Substance Use: No Preferred Language: [place] Communication Ability: Effective Manufacturing Cost Estimator Required: No Beliefs That Will Affect Care: None marital status: Current Living Situation: Spouse current occupational status: retired Feels Safe at Home: Yes Assistive Devices: Denture - Upper and Glasses Review of Systems Review of Systems: All systems reviewed & are unremarkable except as noted in HPI & below Physical Exam Constitutional: WD/WN, vitals as above + ill appearing Eyes: PERRL, conjunctivae normal, anicteric sclerae + eyelid abnormality Neck: trachea midline, no thyromegaly Respiratory: normal respiratory effort, lungs clear to auscultation Cardiovascular: RRR, no murmur, no edema Gastrointestinal (Abdomen): normal bowel sounds, soft, nontender, no hepatosplenomegaly Musculoskeletal: no cyanosis or clubbing, extremities motor strength 5/5 Skin: no rashes, warm and dry Neurologic: CN's II-XI intact bilaterally and moves all extremities Psychiatric: A+Ox3, euthymic affect Lymphatic: no cervical or axillary lymphadenopathy Results & Data Results & Data ([facility]) Vital Signs (Past 12 Hours) Vital Signs Temp Pulse Pulse Resp BP BP Pulse Ox 02/01/22 18:00 68 20 133/82 96 02/01/22 16:47 76 15 91 02/01/22 15:07 89 16 145/89 H 96 02/01/22 14:40 37.8 C H 97 H 20 157/81 H 96 Laboratory Results 02/01/22 02/01/22 02/01/22 Range/Units Unknown 21:51 15:35 WBC (4.8-10.8) K/uL RBC (4.7-6.1) M/uL Hgb (14.0-18.0) g/dL Hct (42-52) % MCV (80-100) fL MCH (25-34) pg MCHC (32-36) g/dL RDW Std Deviation (36.4-46.3) fL RDW Coeff of Maritza (11.5-14.5) % Plt Count (130-400) K/uL MPV (7.4-10.4) fL Immature Gran % (Auto) % Neut % (Auto) % Lymph % (Auto) % [place] % (Auto) % Eos % (Auto) % Baso % (Auto) % Neut # (Auto) (1.4-6.5) K/uL Lymph # (Auto) (1.2-3.4) K/uL [place] # (Auto) (0.11-0.59) K/uL Eos # (Auto) (0-0.5) K/uL Baso # (Auto) (0-0.2) K/uL Immature Gran # (Auto) (0.00-0.02) K/uL D-Dimer 6970 H* (0-500) ug/L FEU Sodium (136-145) mmol/L Potassium (3.5-5.1) mmol/L Chloride (98-107) mmol/L Carbon Dioxide (21-32) mmol/L Anion Gap (3-11) BUN (6-23) mg/dl Creatinine (0.6-1.4) mg/dl Est Cr Clr Drug Dosing Est GFR ( Amer) ml/min Est GFR (Non-Af Amer) ml/min BUN/Creatinine Ratio (10-20) Glucose (70-99(Fasting)) mg/dl Lactate (0.4-2.0) mmol/L Calcium (8.5-10.1) mg/dl Magnesium (1.7-2.4) mg/dl Total Bilirubin (0.2-1.0) mg/dl Direct Bilirubin (0-0.2) mg/dl AST (13-39) U/L ALT (7-52) U/L Alkaline Phosphatase (34-104) U/L Troponin I High Sens 634.5 H* D (0-20) pg/ml C-Reactive Protein (0-0.5) mg/dl Total Protein (6.0-8.3) gm/dl Albumin (3.4-5.0) gm/dl Procalcitonin (0-0.5) ng/ml Nasal Screen MRSA (PCR) Pending SARS-CoV-2 (PCR) (Negative) Influenza Type A (PCR) (Neg) Influenza Type B (PCR) (Neg) RSV (RT-PCR) (Neg) 02/01/22 02/01/22 02/01/22 Range/Units 15:35 15:30 15:06 WBC (4.8-10.8) K/uL RBC (4.7-6.1) M/uL Hgb (14.0-18.0) g/dL Hct (42-52) % MCV (80-100) fL MCH (25-34) pg MCHC (32-36) g/dL RDW Std Deviation (36.4-46.3) fL RDW Coeff of Maritza (11.5-14.5) % Plt Count (130-400) K/uL MPV (7.4-10.4) fL Immature Gran % (Auto) % Neut % (Auto) % Lymph % (Auto) % [place] % (Auto) % Eos % (Auto) % Baso % (Auto) % Neut # (Auto) (1.4-6.5) K/uL Lymph # (Auto) (1.2-3.4) K/uL [place] # (Auto) (0.11-0.59) K/uL Eos # (Auto) (0-0.5) K/uL Baso # (Auto) (0-0.2) K/uL Immature Gran # (Auto) (0.00-0.02) K/uL D-Dimer (0-500) ug/L FEU Sodium (136-145) mmol/L Potassium (3.5-5.1) mmol/L Chloride (98-107) mmol/L Carbon Dioxide (21-32) mmol/L Anion Gap (3-11) BUN (6-23) mg/dl Creatinine (0.6-1.4) mg/dl Est Cr Clr Drug Dosing Est GFR ( Amer) ml/min Est GFR (Non-Af Amer) ml/min BUN/Creatinine Ratio (10-20) Glucose (70-99(Fasting)) mg/dl Lactate 0.9 (0.4-2.0) mmol/L Calcium (8.5-10.1) mg/dl Magnesium (1.7-2.4) mg/dl Total Bilirubin (0.2-1.0) mg/dl Direct Bilirubin (0-0.2) mg/dl AST (13-39) U/L ALT (7-52) U/L Alkaline Phosphatase (34-104) U/L Troponin I High Sens (0-20) pg/ml C-Reactive Protein 2.63 H (0-0.5) mg/dl Total Protein (6.0-8.3) gm/dl Albumin (3.4-5.0) gm/dl Procalcitonin (0-0.5) ng/ml Nasal Screen MRSA (PCR) SARS-CoV-2 (PCR) POSITIVE A* (Negative) Influenza Type A (PCR) Negative (Neg) Influenza Type B (PCR) Negative (Neg) RSV (RT-PCR) Negative (Neg) 02/01/22 02/01/22 02/01/22 Range/Units 15:06 15:06 15:06 WBC 5.32 (4.8-10.8) K/uL RBC 3.96 L (4.7-6.1) M/uL Hgb 12.5 L (14.0-18.0) g/dL Hct 37.0 L (42-52) % MCV 93.4 (80-100) fL MCH 31.6 (25-34) pg MCHC 33.8 (32-36) g/dL RDW Std Deviation 46.2 (36.4-46.3) fL RDW Coeff of Maritza 13.4 (11.5-14.5) % Plt Count 151 (130-400) K/uL MPV 10.6 H (7.4-10.4) fL Immature Gran % (Auto) 0.4 % Neut % (Auto) 74.6 % Lymph % (Auto) 16.0 % [place] % (Auto) 7.5 % Eos % (Auto) 1.3 % Baso % (Auto) 0.2 % Neut # (Auto) 3.97 (1.4-6.5) K/uL Lymph # (Auto) 0.85 L (1.2-3.4) K/uL [place] # (Auto) 0.40 (0.11-0.59) K/uL Eos # (Auto) 0.07 (0-0.5) K/uL Baso # (Auto) 0.01 (0-0.2) K/uL Immature Gran # (Auto) 0.02 (0.00-0.02) K/uL D-Dimer (0-500) ug/L FEU Sodium 134 L (136-145) mmol/L Potassium 4.1 (3.5-5.1) mmol/L Chloride 101 (98-107) mmol/L Carbon Dioxide 25 (21-32) mmol/L Anion Gap 8 (3-11) BUN 24 H (6-23) mg/dl Creatinine 1.05 (0.6-1.4) mg/dl Est Cr Clr Drug Dosing Not Reportable Est GFR ( Amer) 77.9 ml/min Est GFR (Non-Af Amer) 67.2 ml/min BUN/Creatinine Ratio 22.9 H (10-20) Glucose 80 (70-99(Fasting)) mg/dl Lactate (0.4-2.0) mmol/L Calcium 8.8 (8.5-10.1) mg/dl Magnesium 2.1 (1.7-2.4) mg/dl Total Bilirubin 1.8 H (0.2-1.0) mg/dl Direct Bilirubin 0.4 H (0-0.2) mg/dl AST 33 (13-39) U/L ALT 24 (7-52) U/L Alkaline Phosphatase 52 (34-104) U/L Troponin I High Sens 981.5 H* (0-20) pg/ml C-Reactive Protein (0-0.5) mg/dl Total Protein 7.6 (6.0-8.3) gm/dl Albumin 4.3 (3.4-5.0) gm/dl Procalcitonin 0.05 (0-0.5) ng/ml Nasal Screen MRSA (PCR) SARS-CoV-2 (PCR) (Negative) Influenza Type A (PCR) (Neg) Influenza Type B (PCR) (Neg) RSV (RT-PCR) (Neg) Diagnostic Findings Chest X-Ray 02/01/22 15:10 XR chest 1V portable CLINICAL HISTORY: cough weakness TECHNIQUE: Single frontal radiograph of the chest was obtained. Comparison: Comparison is made to chest one view 11/05/2021 FINDINGS: No lines and tubes are seen. The cardiomediastinal silhouette is normal. Lungs are underinflated. There is an ill-defined left lower lobe airspace opacity. No evidence of pleural effusion or pneumothorax. IMPRESSION: Ill-defined left lower lobe airspace opacity, which may represent atelectasis, pneumonia, and/or aspiration. ACT 112: Negative or not required by law. Electronically signed by: Salvador Salter M.D. 02/01/2022 4:16 PM Chest CTA 02/01/22 18:19 CT ANGIOGRAM OF THE CHEST CLINICAL HISTORY: Elevated d-dimer. Covid. COMPARISON STUDY: Chest x-ray dated 02/01/2022. TECHNIQUE: Following the IV administration of 117 cc of Optiray 320, CT angiogram of the chest was performed from the upper abdomen to the thoracic inlet utilizing the pulmonary embolus protocol. Images are reviewed in the axial, sagittal, and coronal planes. 3-D MIPS images are created and assessed. IV contrast was administered without complication. A dose lowering technique was utilized adhering to the principles of ALARA. CT DOSE: 465.60 mGy.cm FINDINGS: Thyroid: Atrophic. Thoracic aorta: Atherosclerotic change is noted in the thoracic aorta, which is normal in caliber and demonstrates standard 3-vessel arch anatomy. No dissection is seen. Pulmonary vasculature: The pulmonary trunk is normal in caliber. There are no filling defects identified in main, lobar, or segmental pulmonary branches to suggest pulmonary embolus. Heart: The heart is mildly enlarged and without pericardial effusion. The coronary arteries and mitral annulus are densely calcified. Lungs and pleural spaces: Evaluation of the lung parenchyma is modestly degraded by motion artifact. Mild emphysematous change is observed. There is no airspace consolidation typical for pneumonia or pleural effusion. Scarring/atelectasis is noted at the lung bases. A tiny calcified granulomas seen in the left lower lobe. The trachea and central airways appear clear. Mediastinum: There is no mediastinal lymphadenopathy. Martina: Clear. Axillae: There is no axillary lymphadenopathy. Upper abdomen: Partially visualized upper abdominal viscera is within normal limits. Skeletal structures: The skeletal structures are osteopenic. No lytic or blastic bony lesions are seen. Degenerative change is noted in the shoulders and thoracic spine. IMPRESSION: 1. There is no evidence of pulmonary embolus in the main, lobar, or segmental pulmonary arteries. 2. Cardiomegaly and mild emphysema. 3. There is no airspace consolidation or pleural effusion. 4. Additional findings as above. ACT 112: Negative or not required by law. Electronically signed by: Madhu Wright M.D. 02/01/2022 8:08 PM ECG Additional Comments: ECG on 02/01/2022 at 1450 with normal sinus rhythm, rate 90, T wave inversions in leads III and aVF and subtle ST depressions in lateral leads change from previous Code Status & VTE Plan Code Status DNR/DNI VTE Prophylaxis Plan VTE Prophylaxis will be ordered: Yes Supervising Physician Co-Signing Physician Notes I personally examined the patient and verified all jones points of history and exam, discussed case, and agree with decision making with Dr. Merlos with the following additions/exceptions: This patient is a 81-year-old male with a history of recent acute CVA, HTN, who presents with worsening generalized weakness and found to have COVID-19. He had some mild hypoxia when he came in which is now improved after nebulizer treatment and steroids. Chest x-ray with some likely atelectasis on the left, CT angiogram of the chest negative for pneumonia or PE. History and ROS reviewed as above Vitals reviewed Gen: AAOx3, NAD HEENT: Anicteric sclerae, EOMI CV: RRR no mgr nl S1S2 Pulm: CTAB no wcr Abd: +BS soft NT ND no masses or hernias Ext: No edema, 2+ DP pulses Skin: No rashes, warm/dry Neuro: Full strength throughout Labs, ECG, and rads reviewed 81-year-old male with history as above, here with generalized weakness from COVID-19 illness and mild acute respiratory failure with hypoxia and myocardial demand ischemia Trend troponin, check limited echo, follow ECG Continue dexamethasone but patient declines to be treated with Remdesivir Follow chest x-ray in the morning No need for further antibiotics as no pneumonia seen on imaging, no leukocytosis, no sepsis Treatment plan outlined as above Resident Activity Tracking Resident Involvement: Resident Care Provided Care Provided: Adult Hospital Medicine (1) Hypertension Hypertension type: unspecified Qualified Code(s): I10 - Essential (primary) hypertension
[2022-02-01] MEDS ORDERED: POLYETHYLENE (MIRALAX) 17 GM PACK PO PRN (21:21)
[2022-02-01] MEDS ORDERED: ROSUVASTATIN CALCIUM 20 MG TAB PO SCH (21:21)
[2022-02-01] MEDS ORDERED: ASPIRIN 81 MG ECTAB PO SCH (21:21)
[2022-02-01] MEDS ORDERED: ONDANSETRON INJ 2 MG/ML 2 ML VIAL IV PRN (21:21)
[2022-02-01] MEDS: ALBUT/IPRATROP 3MG/0.5MG NEB 3 ML VIAL NEB SCH (22:34)
[2022-02-01] MEDS: ENOXAPARIN INJ 40 MG/0.4 ML SYR SQ SCH (22:40)
--- NOTE | 2022-02-02 00:26 | Billing Data ---
Date of Service February 01, 2022 Coding Level of Care Code INT OBSERVATION CARE 70M LVL 3
[2022-02-02] MEDS: ALBUT/IPRATROP 3MG/0.5MG NEB 3 ML VIAL NEB SCH ×2 (02:25→07:33)
[2022-02-02 04:16] LABS: Hematocrit (blood only) 36.9 % (42-52); Hemoglobin 12.5 g/dL (14.0-18.0); Immature Granulocytes # (auto) 0.01 K/uL (0.00-0.02); Immature Granulocytes % (auto) 0.3 %; Lymphocytes # (auto) 0.54 K/uL (1.2-3.4); Lymphocytes % (auto) 14.9 %; Mean Corpuscular Hemoglobin 31.3 pg (25-34); Mean Corpuscular Hgb Conc 33.9 g/dL (32-36); Mean Corpuscular Volume 92.5 fL (80-100); Mean Platelet Volume 10.2 fL (7.4-10.4); Monocytes % (auto) 5.5 %; Neutrophils # (auto) 2.87 K/uL (1.4-6.5); Neutrophils % (auto) 79.3 %; Platelet Count 214 K/uL (130-400); RDW Coefficient of Variation 13.3 % (11.5-14.5); RDW Standard Deviation 45.3 fL (36.4-46.3); Red Blood Count 3.99 M/uL (4.7-6.1); White Blood Count 3.62 K/uL (4.8-10.8)
[2022-02-02 04:33] LABS: Albumin Globulin Ratio 1.4 (0.9-2); Albumin Level 3.9 gm/dl (3.4-5.0); BUN Creatinine Ratio 23.3 (10-20); Bilirubin,Total 1.3 mg/dl (0.2-1.0); C Reactive Protein 2.68 mg/dl (0-0.5); Calcium 8.5 mg/dl (8.5-10.1); Creatinine Clr Calc Pharmacy 78.3 ml/min; Est GFR (African American) 93.8 ml/min; Est GFR (Non-African American) 80.9 ml/min; Globulin 2.8 gm/dl (2.5-4.0); Potassium 3.8 mmol/L (3.5-5.1); Total Protein 6.7 gm/dl (6.0-8.3)
--- NOTE | 2022-02-02 08:15 | XRay Report ---
XR chest 1V portable CLINICAL HISTORY: COVID-19 COMPARISON STUDY: Chest radiograph and chest CT February 01, 2022. FINDINGS: No pneumothorax or pleural effusion is noted. There is no evidence for pulmonary edema. Mil d cardiomegaly is unchanged. No airspace opacities are present. Appearance of the chest is unchanged. IMPRESSION: No acute cardiopulmonary findings. No change in appearance of the chest. ACT 112: Negative or not required by law. Electronically signed by: Nima Littlejohn M.D. 02/02/2022 8:14 AM
[2022-02-02] MEDS ORDERED: amLODIPine BESYLATE 5 MG TAB PO SCH (09:00)
[2022-02-02] MEDS ORDERED: LOSARTAN POTASSIUM 25 MG TAB PO SCH (09:00)
[2022-02-02] MEDS ORDERED: CYANOCOBALAMIN (B-12) 500 MCG TABLET PO SCH (09:00)
[2022-02-02] MEDS: ENOXAPARIN INJ 40 MG/0.4 ML SYR SQ SCH (09:11)
[2022-02-02] MEDS ORDERED: ALBUT/IPRATROP 3MG/0.5MG NEB 3 ML VIAL NEB PRN (09:57)
--- NOTE | 2022-02-02 11:54 | XCELERA ---
[id number]
[2022-02-02 12:02] VITALS: O2SAT 99
--- NOTE | 2022-02-02 15:31 | Electrocardiogram Report ---
Test Reason : Blood Pressure : / mmHG Vent. Rate : 061 BPM Atrial Rate : 061 BPM P-R Int : 150 ms QRS Dur : 094 ms QT Int : 456 ms P-R-T Axes : 062 049 012 degrees QTc Int : 459 ms Normal sinus rhythm Poor R wave progression, consider anterior OK vs. lead placement vs. LVH Abnormal ECG When compared with ECG of 01-FEB-2022 14:50, Minimal criteria for Anterior infarct are now Present ST no longer depressed in Lateral leads Confirmed by Chace Zapata ([id number]) on 02/02/2022 3:30:40 PM Referred By: REFERRED SELF Confirmed By:Chace Zapata
[2022-02-02 16:03] VITALS: TEMP 98.2
[2022-02-02] MEDS ORDERED: dexAMETHasone 1 MG TAB PO ONE (16:22)
[2022-02-02 16:41] VITALS: BP 144/80; PULSE 66
[2022-02-02 17:35] LABS: Appearance Urine Clear (Clear); Bilirubin Urine Negative (Negative); Blood Urine Negative (Negative); Color Urine Yellow; Glucose Urine UA Negative (Negative); Ketones Urine Negative (Negative); Leukocyte Esterase Urine Negative (Negative); Nitrite Urine Negative (Negative); Protein Urine Negative (Negative); Specific Gravity Urine 1.009 (1.000-1.030); Urobilinogen Urine Negative (Negative)
== END 2022-02-02 17:56 | disposition home or self-care (01) ==
LOC: ED 14:35 → 2W 14:35 → SUATTDRO 19:35 → 2W 20:55